=== PATIENT | male | born 1930 | race Caucasian/White ===

== ENCOUNTER 2017-05-29 10:57 | Inpatient (IN) | payer MEDICARE, BC ==
[2017-05-29] MEDS ORDERED: Ibuprofen 200 MG Tab PO PRN (14:57)
[2017-05-29] MEDS ORDERED: Docusate Sodium 100 MG Cap PO PRN (15:03)
[2017-05-29] MEDS ORDERED: Betamethasone Dipropionate/Clotrimazole 0.05-1% Crm 15 GM Tube TOP PRN (15:03)
[2017-05-29] MEDS ORDERED: Nitroglycerin 0.4 MG Tab.SL SL PRN (15:03)
[2017-05-29] MEDS ORDERED: Non-Formulary Medication 1 Each (Hydrocodone/Acetaminophen [Hydrocodon-Acetaminophn 10-325 PO PRN (15:03)
[2017-05-29] MEDS ORDERED: ALPRAZolam 0.25 MG Tab PO PRN (15:03)
[2017-05-29] MEDS ORDERED: Famotidine 20 MG Tab PO PRN (15:03)
[2017-05-29 15:32] LABS: CHLORIDE,CL 101 mEq/L (98-106); SODIUM,NA 137 mEq/L (136-145)
[2017-05-29] MEDS: Pseudoephedrine 30 MG Tab PO PRN (17:41)
[2017-05-29] MEDS: Gabapentin 300 MG Cap PO SCH (19:47)
[2017-05-29] MEDS: Simvastatin 10 MG Tab PO SCH (19:47)
[2017-05-29] MEDS: Amitriptyline 10 MG Tab PO SCH (19:48)
[2017-05-29] MEDS: Tamsulosin 0.4 MG Cap.ER PO SCH (19:48)
[2017-05-29] MEDS: Latanoprost 0.005% Ophth Soln 2.5 ML Bottle EYELF SCH (19:48)
[2017-05-29] MEDS: Timolol Maleate 0.5% Ophth Soln 5 ML Bottle EYELF SCH (19:48)
[2017-05-29] MEDS: Metoprolol Tartrate 25 MG Tab PO SCH (19:48)
[2017-05-29] MEDS: Acetaminophen/HYDROcodone 325-5 MG Tab PO PRN (19:54)
[2017-05-30] MEDS: Enoxaparin 30 MG/0.3 ML Syringe SUBCUT SCH (08:22)
[2017-05-30] MEDS: Gabapentin 300 MG Cap PO SCH ×2 (08:23→20:41)
[2017-05-30] MEDS: Aspirin 81 MG Tab.EC PO SCH (08:23)
[2017-05-30] MEDS: Primidone 50 MG Tab PO SCH (08:24)
[2017-05-30] MEDS: Timolol Maleate 0.5% Ophth Soln 5 ML Bottle EYELF SCH ×2 (08:25→20:42)
[2017-05-30] MEDS: Metoprolol Tartrate 25 MG Tab PO SCH ×2 (08:52→20:40)
[2017-05-30] MEDS: Pantoprazole 40 MG Tab.CR PO SCH (08:53)
--- NOTE | 2017-05-30 09:24 | HP ---
HISTORY OF PRESENT ILLNESS: Denzel is 87-year-old male who is status post strangulated ventral incisional hernia repair. He had this done down in [facility] in [place]. He had presented prior to that to the emergency room and with vomiting and a lump to the left side, a CT scan did confirm strangulated hernia. He underwent this surgery at [facility] for exploratory laparotomy with repair of strangulated ventral hernia and lysis of adhesions on 05/22. He has been doing quite well. He tolerated the procedure without any complications. He presents today for strengthening and conditioning. Denzel states that he is feeling quite well; however, he does feel weak. He states he has been trying to get up and be ambulatory with a walker; however, things are not progressing as fast as he would hope they would to be. He has does state that he would like to get home and get up at some point. He has not had any postop complications. States bowel movements have been okay. His diet has been advanced to a full diet presently. G-tube was pulled yesterday. He still continues to have a Drake catheter in place and wants me to recommend to discontinue it on Monday. PAST MEDICAL HISTORY: The patient would include history of hyperlipidemia, history of headaches, history of gastroesophageal reflux disease, degenerative joint disease, history of celiac artery aneurysm, coronary artery disease, arthritis, history of prostate cancer, history of inguinal hernia with repair, history of a transient ischemic attack, and history of shingles. PAST SURGICAL HISTORY: Includes inguinal hernia repair, cataract extraction, transperineal implant of radiation with use of ultrasound, carpal tunnel release, knee surgery x3 including two replacements, thoracic kyphosis surgery, epidural cervical steroid injection, tonsillectomy with adenoidectomy, cardiac catheterization showing three vessel CAD, inguinal hernia repair, and coronary artery bypass graft x3. SOCIAL HISTORY: The patient is and lives by himself. No tobacco use. No illicit drug use. Does socially drink one can of beer per week. FAMILY HISTORY: Significant for arthritis, heart attack, heart disease, and diabetes. ALLERGIES: INCLUDE CEPHALEXIN, ESCITALOPRAM, PROCAN SR, AND SULFA. CURRENT MEDICATIONS: Include Tylenol 650 mg p.o. q.4 hours p.r.n., Xanax 0.25 mg p.o. bedtime p.r.n., amitriptyline 20 mg p.o. at bedtime, aspirin 81 mg p.o. daily, Lotrisone topical b.i.d. p.r.n., Colace 100 mg p.o. daily p.r.n., Pepcid 20 mg p.o. daily p.r.n., gabapentin 600 mg p.o. b.i.d., [place] 5/325 one tab q.4 hours p.r.n., ibuprofen 400 mg p.o. q.6 hours p.r.n., metoprolol 12.5 mg p.o. b.i.d., nitroglycerin 0.4 mg sublingual q.5 minutes p.r.n., Lumigan ophthalmic solution one drop left eye bedtime, Protonix 40 mg p.o. daily, MiraLAX 17 g p.o. daily, primidone 25 mg p.o. daily, simvastatin 10 mg p.o. at bedtime, Flomax 0.4 mg p.o. bedtime, and timolol maleate left eye b.i.d. as scheduled. PHYSICAL EXAMINATION: VITAL SIGNS: Blood pressure 140/75 with a respiratory rate of 18, O2 is 96% on room air, and temp is 97.3 with a pulse of 65. GENERAL: Pleasant cooperative male. He is resting comfortably. Does not really appear to be in any acute distress, not acutely ill. HEENT: Grossly unremarkable. LUNGS: Clear to auscultation. I do not hear any adventitious sounds. RESPIRATIONS: Equal and nonlabored. CARDIAC: Regular rate and rhythm. No murmurs are noted. ABDOMEN: Soft. The left incision does appear to be healing well. He does have some mild ecchymosis present around it, however, I do not see any signs of wound dehiscence. I do not see any drainage presently. ABDOMEN: Soft. Bowel sounds are present and active. Again, no organomegaly. No guarding or rigidity is noted. EXTREMITIES: No pedal edema is noted. Pedal pulses are 1+ equal bilaterally. ASSESSMENT: STATUS POST STRANGULATED VENTRAL INCISIONAL HERNIA REPAIR. PLAN: Physical therapy was ordered. We will discontinue Drake catheter on Monday. We will continue Lovenox during this time. We will have him up as tolerated and with assistance. No lifting greater than 10 pounds for 6 weeks as well. I did verbalize that Dr. Sanders will follow him during his stay which he verbalized understanding. We will get Physical Therapy to work with him in the morning. YURIY Job #: /[id number]
[2017-05-30] MEDS: Mupirocin Oint 22 GM Tube TOP SCH ×2 (10:11→20:44)
[2017-05-30] MEDS: Polyethylene Glycol 3350 Powder 17 GM Packet PO PRN (10:16)
[2017-05-30] MEDS: Pseudoephedrine 30 MG Tab PO PRN (13:58)
[2017-05-30] MEDS: Amitriptyline 10 MG Tab PO SCH (20:40)
[2017-05-30] MEDS: Tamsulosin 0.4 MG Cap.ER PO SCH (20:41)
[2017-05-30] MEDS: Simvastatin 10 MG Tab PO SCH (20:41)
[2017-05-30] MEDS: Acetaminophen 325 MG Tab PO PRN (20:43)
[2017-05-30] MEDS: Latanoprost 0.005% Ophth Soln 2.5 ML Bottle EYELF SCH (20:44)
[2017-05-31] MEDS: Pantoprazole 40 MG Tab.CR PO SCH (07:09)
[2017-05-31] MEDS: Aspirin 81 MG Tab.EC PO SCH (08:18)
[2017-05-31] MEDS: Primidone 50 MG Tab PO SCH (08:18)
[2017-05-31] MEDS: Gabapentin 300 MG Cap PO SCH ×2 (08:19→20:04)
[2017-05-31] MEDS: Mupirocin Oint 22 GM Tube TOP SCH ×2 (09:06→20:05)
[2017-05-31] MEDS: Metoprolol Tartrate 25 MG Tab PO SCH ×2 (09:06→20:02)
[2017-05-31] MEDS: Timolol Maleate 0.5% Ophth Soln 5 ML Bottle EYELF SCH ×2 (09:10→20:04)
[2017-05-31] MEDS: Enoxaparin 30 MG/0.3 ML Syringe SUBCUT SCH (09:10)
[2017-05-31] MEDS: Acetaminophen/HYDROcodone 325-5 MG Tab PO PRN (10:07)
[2017-05-31] MEDS ORDERED: Acetaminophen/HYDROcodone 325-5 MG Tab PO PRN (10:13)
[2017-05-31] MEDS: Pseudoephedrine 30 MG Tab PO PRN (11:53)
[2017-05-31] MEDS: Levofloxacin 500 MG Tab PO SCH (17:31)
[2017-05-31] MEDS: Amitriptyline 10 MG Tab PO SCH (20:03)
[2017-05-31] MEDS: Tamsulosin 0.4 MG Cap.ER PO SCH (20:04)
[2017-05-31] MEDS: Simvastatin 10 MG Tab PO SCH (20:04)
[2017-05-31] MEDS: Latanoprost 0.005% Ophth Soln 2.5 ML Bottle EYELF SCH (20:11)
[2017-05-31] MEDS: Acetaminophen 325 MG Tab PO PRN (20:16)
[2017-06-01] MEDS: Pantoprazole 40 MG Tab.CR PO SCH (06:47)
[2017-06-01] MEDS: Enoxaparin 30 MG/0.3 ML Syringe SUBCUT SCH (08:03)
[2017-06-01] MEDS: Metoprolol Tartrate 25 MG Tab PO SCH ×2 (08:04→19:46)
[2017-06-01] MEDS: Gabapentin 300 MG Cap PO SCH ×2 (08:04→19:45)
[2017-06-01] MEDS: Polyethylene Glycol 3350 Powder 17 GM Packet PO PRN (08:05)
[2017-06-01] MEDS: Primidone 50 MG Tab PO SCH (08:06)
[2017-06-01] MEDS: Aspirin 81 MG Tab.EC PO SCH (08:07)
[2017-06-01] MEDS: Pseudoephedrine 30 MG Tab PO PRN (08:07)
[2017-06-01] MEDS: Mupirocin Oint 22 GM Tube TOP SCH ×2 (08:08→19:48)
[2017-06-01] MEDS: Timolol Maleate 0.5% Ophth Soln 5 ML Bottle EYELF SCH ×2 (08:08→19:48)
[2017-06-01] MEDS: Acetaminophen 325 MG Tab PO PRN ×2 (12:22→19:59)
[2017-06-01] MEDS: Levofloxacin 500 MG Tab PO SCH (17:21)
[2017-06-01] MEDS: Latanoprost 0.005% Ophth Soln 2.5 ML Bottle EYELF SCH (19:47)
[2017-06-01] MEDS: Amitriptyline 10 MG Tab PO SCH (19:47)
[2017-06-01] MEDS: Tamsulosin 0.4 MG Cap.ER PO SCH (19:47)
[2017-06-01] MEDS: Simvastatin 10 MG Tab PO SCH (19:47)
[2017-06-02] MEDS: Pantoprazole 40 MG Tab.CR PO SCH (06:31)
[2017-06-02] MEDS ORDERED: Magnesium Hydroxide 400 MG/5 ML Susp 30 ML Cup PO ONE (08:00)
[2017-06-02] MEDS: Primidone 50 MG Tab PO SCH (08:32)
[2017-06-02] MEDS: Enoxaparin 30 MG/0.3 ML Syringe SUBCUT SCH (08:32)
[2017-06-02] MEDS: Aspirin 81 MG Tab.EC PO SCH (08:32)
[2017-06-02] MEDS: Mupirocin Oint 22 GM Tube TOP SCH ×2 (08:33→19:43)
[2017-06-02] MEDS: Metoprolol Tartrate 25 MG Tab PO SCH ×2 (08:33→19:44)
[2017-06-02] MEDS: Gabapentin 300 MG Cap PO SCH ×2 (08:34→19:44)
[2017-06-02] MEDS: Timolol Maleate 0.5% Ophth Soln 5 ML Bottle EYELF SCH ×2 (08:34→19:49)
[2017-06-02] MEDS ORDERED: Bisacodyl 10 MG Supp RECTAL ONE (14:23)
[2017-06-02] MEDS: Levofloxacin 500 MG Tab PO SCH (17:22)
[2017-06-02] MEDS: Amitriptyline 10 MG Tab PO SCH (19:44)
[2017-06-02] MEDS: Simvastatin 10 MG Tab PO SCH (19:46)
[2017-06-02] MEDS: Tamsulosin 0.4 MG Cap.ER PO SCH (19:46)
[2017-06-02] MEDS: Acetaminophen 325 MG Tab PO PRN (19:46)
[2017-06-02] MEDS: Latanoprost 0.005% Ophth Soln 2.5 ML Bottle EYELF SCH (19:49)
[2017-06-03] MEDS: Pantoprazole 40 MG Tab.CR PO SCH (07:07)
[2017-06-03] MEDS: Mupirocin Oint 22 GM Tube TOP SCH (08:03)
[2017-06-03] MEDS: Primidone 50 MG Tab PO SCH (08:04)
[2017-06-03] MEDS: Metoprolol Tartrate 25 MG Tab PO SCH (08:04)
[2017-06-03] MEDS: Gabapentin 300 MG Cap PO SCH (08:04)
[2017-06-03] MEDS: Enoxaparin 30 MG/0.3 ML Syringe SUBCUT SCH (08:11)
[2017-06-03] MEDS: Aspirin 81 MG Tab.EC PO SCH (08:12)
[2017-06-03] MEDS: Timolol Maleate 0.5% Ophth Soln 5 ML Bottle EYELF SCH (08:13)
[2017-06-03 08:16] VITALS: BP 156/69
[2017-06-03] MEDS ORDERED: Magnesium Citrate Solution 296 ML Bottle PO ONE (09:00)
--- NOTE | 2017-06-03 14:14 | PCM.DCSUM1 ---
Discharge Summary - Hospital Course HPI Initial Comments: This patient is a swing patient that was admitted here for strengthening and rehab. Patient had undergone a hernia repair of the abdomen. The patient has been doing well here and has requested to go home today. The patient has family that is willing to take the patient home and help care for him. The patient reports his only complaint is mild constipation, which is chronic for him. He reports that typically he would take Magnesium Citrate and it would work. He has requested this today and would like to go home. The patient is alert and oriented. Stable. I will discharge him home. His wound on abdomen looks well and healing without any complications. - Discharge Data Discharge Date: 06/03/17 Discharge Disposition: Home, Self-Care 01 Condition: Good - Patient Summary/Data Consults: Consultations 05/29/17 14:57 PT Evaluation and Treatment [CONS] Routine - Patient Instructions Diet: Usual Diet as Tolerated Activity: As Tolerated, No Strenuous Activities Showering/Bathing: May Shower Wound/Incision Care: Keep Operative Site/Wound Site Clean and Dry Notify Provider of: Fever, Increased Pain, Swelling and Redness, Drainage, Nausea and/or Vomiting - Discharge Plan Home Medications: Home Meds ALPRAZolam [Alprazolam Odt] 0.25 mg PO BEDTIME PRN 12/17/13 [History] Amitriptyline [Elavil] 20 mg PO BEDTIME 12/17/13 [History] Aspirin [Halfprin] 81 mg PO DAILY 12/17/13 [History] Nitroglycerin [Nitrostat] 0.4 mg SL ASDIRECTED PRN 12/17/13 [History] Simvastatin [Zocor] 10 mg PO BEDTIME 12/17/13 [History] Timolol Maleate [Timoptic 0.5% Ophth Soln] 1 drop EYELF BID 12/17/13 [History] Bimatoprost [LUMIGAN 0.01% Ophth Soln] 1 drop EYELF BEDTIME 12/18/13 [History] Docusate Sodium 100 mg PO DAILY PRN 11/14/14 [History] Gabapentin [Neurontin] 600 mg PO BID 11/14/14 [History] Hydrocodone/Acetaminophen [Hydrocodon-Acetaminophen 5-325] 1 each PO Q4H PRN 07/21 [History] Multivitamin [Multi-Vitamin Daily] 1 tab PO DAILY 11/14/14 [History] Ranitidine [Zantac] 75 mg PO DAILY PRN 11/14/14 [History] Tamsulosin [Flomax] 0.4 mg PO BEDTIME 11/14/14 [History] Acetaminophen [Tylenol Extra Strength] 500 mg PO Q6H PRN 07/30/15 [History] Cholecalciferol (Vitamin D3) [Vitamin D3] 1,000 units PO DAILY 07/30/15 [History ] Pantoprazole [ProTONIX] 40 mg PO DAILY 09/20/16 [History] Betamethasone/Propylene Glyc [Betamethasone Dp Aug 0.05% Oin] 1 applic TOP DAILY PRN 05/22/17 [History] Clotrimazole/Betamethasone Dip [Lotrisone Cream] 1 applic TOP BID PRN 05/22/17 [ History] Primidone 25 mg PO DAILY 05/22/17 [History] Hydrocodone/Acetaminophen [Hydrocodon-Acetaminophn 10-325] 1 tab PO Q4H PRN [History] Metoprolol Tartrate [Lopressor] 12.5 mg PO BID 05/29/17 [History] - Discharge Summary/Plan Comment DC Time >30 min.: No Discharge Summary/Plan Comment: Followup with your primary care provider next week Return to the ER for worsening of condition or any emergent concerns - General Info Date of Service: 06/03/17 Functional Status: Reports: Pain Controlled - Review of Systems General: Reports: No Symptoms HEENT: Reports: No Symptoms Pulmonary: Reports: No Symptoms Cardiovascular: Reports: No Symptoms Gastrointestinal: Reports: Constipation (chronic). Denies: Abdominal Pain, Decreased Appetite, Diarrhea, Difficulty Swallowing, Nausea, Vomiting Genitourinary: Reports: No Symptoms Musculoskeletal: Reports: No Symptoms Skin: Reports: No Symptoms Neurological: Reports: No Symptoms Psychiatric: Reports: No Symptoms - Patient Data Vitals - Most Recent: Last Vital Signs Temp 96.1 F 06/03/17 08:00 Pulse 67 06/03/17 08:04 Resp 18 06/03/17 08:00 BP 156/69 H 06/03/17 08:04 Pulse Ox 98 06/03/17 08:00 Weight - Most Recent: 158 lb 6.4 oz CORNELIO Results - Last 24 hrs: Microbiology 05/31/17 17:21 Urine Culture - Final Urine, Voided Med Orders - Current: Current Medications Acetaminophen (Tylenol) 650 mg PO Q4H PRN PRN Reason: Pain (Mild 1-3)/fever Last Admin: 06/02/17 19:46 Dose: 650 mg Hydrocodone Bitart/Acetaminophen (Elton 325-5 Mg) 0.5 - 1 tab PO Q4H PRN PRN Reason: Pain Last Admin: 05/31/17 16:07 Dose: 0.5 tab Alprazolam (Xanax) 0.25 mg PO BEDTIME PRN PRN Reason: Anxiety Last Admin: 06/02/17 19:47 Dose: 0.25 mg Amitriptyline HCl (Elavil) 20 mg PO BEDTIME [facility] Last Admin: 06/02/17 19:44 Dose: 20 mg Aspirin (Halfprin) 81 mg PO DAILY [facility] Last Admin: 06/03/17 08:12 Dose: 81 mg Betamethasone/Clotrimazole (Lotrisone) 0 gm TOP BID PRN PRN Reason: skin irritation Docusate Sodium (Colace) 100 mg PO DAILY PRN PRN Reason: Constipation Last Admin: 06/01/17 08:06 Dose: 100 mg Enoxaparin Sodium (Lovenox) 30 mg SUBCUT Q24H [facility] Last Admin: 06/03/17 08:11 Dose: 30 mg Famotidine (Pepcid) 20 mg PO DAILY PRN PRN Reason: Acid reflux Last Admin: 06/02/17 19:46 Dose: 20 mg Gabapentin (Neurontin) 600 mg PO BID [facility] Last Admin: 06/03/17 08:04 Dose: 600 mg Ibuprofen (Motrin) 400 mg PO Q6H PRN PRN Reason: Pain (mild 1-3) Latanoprost (Xalatan 0.005% Ophth Soln) 0 ml EYELF BEDTIME [facility] Last Admin: 06/02/17 19:49 Dose: 1 drop Levofloxacin (Levaquin) 500 mg PO Q24H [facility] Last Admin: 06/02/17 17:22 Dose: 500 mg Metoprolol Tartrate (Lopressor) 12.5 mg PO BID [facility] Last Admin: 06/03/17 08:04 Dose: 12.5 mg Mupirocin (Bactroban Oint) 0 gm TOP BID [facility] Last Admin: 06/03/17 08:03 Dose: 1 applic Nitroglycerin (Nitrostat) 0.4 mg SL Q5M PRN PRN Reason: Chest Pain Pantoprazole Sodium (Protonix) 40 mg PO 0700 [facility] Last Admin: 06/03/17 07:07 Dose: 40 mg Polyethylene Glycol (Miralax) 17 gm PO DAILY PRN PRN Reason: Constipation Last Admin: 06/01/17 08:05 Dose: 17 gm Primidone (Mysoline) 25 mg PO DAILY [facility] Last Admin: 06/03/17 08:04 Dose: 25 mg Pseudoephedrine HCl (Sudogest) 30 mg PO Q8H PRN PRN Reason: secretions Last Admin: 06/01/17 08:07 Dose: 30 mg Simvastatin (Zocor) 10 mg PO BEDTIME [facility] Last Admin: 06/02/17 19:46 Dose: 10 mg Tamsulosin HCl (Flomax) 0.4 mg PO BEDTIME [facility] Last Admin: 06/02/17 19:46 Dose: 0.4 mg Timolol Maleate (Timoptic 0.5% Ophth Soln) 0 ml EYELF BID [facility] Last Admin: 06/03/17 08:13 Dose: 1 drop Discontinued Medications Hydrocodone Bitart/Acetaminophen (Elton 325-5 Mg) 1 tab PO Q4H PRN PRN Reason: Pain Last Admin: 05/31/17 10:07 Dose: 0.5 tab Bisacodyl (Dulcolax) 10 mg RECTAL ONETIME ONE Stop: 06/02/17 14:24 Last Admin: 06/02/17 15:35 Dose: 10 mg Magnesium Citrate (Citrate Of Magnesia) 75 ml PO ONETIME ONE Stop: 06/03/17 09:01 Last Admin: 06/03/17 09:23 Dose: 75 ml Magnesium Hydroxide (Milk Of Magnesia) 30 ml PO ONETIME ONE Stop: 06/02/17 08:01 Last Admin: 06/02/17 08:32 Dose: 30 ml - Exam General: Reports: Alert, Oriented, Cooperative, No Acute Distress Neck: Reports: Supple Lungs: Reports: Clear to Auscultation, Normal Respiratory Effort Cardiovascular: Reports: Regular Rate, Regular Rhythm, No Murmurs GI/Abdominal Exam: Normal Bowel Sounds, Soft, Non-Tender, No Organomegaly, No Distention, No Abnormal Bruit, No Mass, Pelvis Stable Back Exam: Reports: Normal Inspection, Full Range of Motion Extremities: Normal Inspection, Normal Range of Motion, Non-Tender, No Pedal Edema, Normal Capillary Refill Skin: Reports: Warm, Dry Wound/Incisions: Reports: Healing Well (abdomen. Steri Strips in place. ), Dressing Dry and Intact, No Drainage. Denies: Erythema Neurological: Reports: No New Focal Deficit Psy/Mental Status: Reports: Alert, Normal Affect, Normal Mood *Q Meaningful Use (DIS) - VTE *Q VTE Criteria *Q: - Stroke *Q Stroke Criteria *Q: - AMI *Q AMI Criteria *Q:
== END 2017-06-03 15:40 | disposition home or self-care (01) | DRG 950 ==
LOC: UNDOADMIN 13:20 → CC.MS 13:20
PROVIDERS: ADMIT General Practice; ATTEND General Practice
DX: Z48.815 Encounter for surgical aftercare following surgery on the digestive system (principal); R53.1 Weakness; Z98.890 Other specified postprocedural states; E78.5 Hyperlipidemia, unspecified; K21.9 Gastro-esophageal reflux disease without esophagitis; I25.10 Atherosclerotic heart disease of native coronary artery without angina pectoris; K59.09 Other constipation
CPT/HCPCS: 36415; 80053; 81001; 83735; 85025; 87086; 97110-GP; 97161-GP; A9270-GY; J1650

== ENCOUNTER 2017-06-25 03:55 | Emergency (ER) | payer MEDICARE, BC ==
[2017-06-25 04:08] VITALS: BP 118/72
[2017-06-25 04:51] LABS: CHLORIDE,CL 100 mEq/L (98-106); SODIUM,NA 136 mEq/L (136-145)
--- NOTE | 2017-06-25 05:16 | EDM.PDOC ---
ED HPI GENERAL MEDICAL PROBLEM - General Chief Complaint: General Stated Complaint: Weakness Time Seen by Provider: 06/25/17 04:24 Source of Information: Reports: Patient History Limitations: Reports: No Limitations - History of Present Illness INITIAL COMMENTS - FREE TEXT/NARRATIVE: This patient is a pleasant 87 year old male that presents to the ER. Patient reports that at 2030 last night he developed burning chest pain. He reports it was mild in nature. He reports he took maalox and then nitro at 0130 this morning and it completely resolved. Patient reports he is now pain free. Patient denies sánchez, dizziness, n, v, d, f, cp now, shortness of breath, abd pain. Patient is fully alert and oriented. Stable. Onset Date: 06/24/17 Onset Time: 20:30 Duration: Hour(s): (5) Quality: Reports: Burning Severity: Mild Improves with: Reports: Medication (Nitro at 0130.) Worsens with: Reports: None - Related Data Allergies Allergy/AdvReac Type Severity Reaction Status Date / Time cephalexin Allergy Cannot Verified 06/25/17 04:08 Remember escitalopram Allergy Rash Verified 06/25/17 04:08 procainamide HCl Allergy Cannot Verified 06/25/17 04:08 [From Procan SR] Remember Sulfa (Sulfonamide Allergy Nausea and Verified 06/25/17 04:08 Antibiotics) Vomiting Home Meds: Home Meds ALPRAZolam [Alprazolam Odt] 0.25 mg PO BEDTIME PRN 12/17/13 [History] Amitriptyline [Elavil] 20 mg PO BEDTIME 12/17/13 [History] Aspirin [Halfprin] 81 mg PO DAILY 12/17/13 [History] Nitroglycerin [Nitrostat] 0.4 mg SL ASDIRECTED PRN 12/17/13 [History] Simvastatin [Zocor] 10 mg PO BEDTIME 12/17/13 [History] Timolol Maleate [Timoptic 0.5% Ophth Soln] 1 drop EYELF BID 12/17/13 [History] Bimatoprost [LUMIGAN 0.01% Ophth Soln] 1 drop EYELF BEDTIME 12/18/13 [History] Docusate Sodium 100 mg PO DAILY PRN 11/14/14 [History] Gabapentin [Neurontin] 600 mg PO BID 11/14/14 [History] Hydrocodone/Acetaminophen [Hydrocodon-Acetaminophen 5-325] 1 each PO Q4H PRN 07/21 [History] Multivitamin [Multi-Vitamin Daily] 1 tab PO DAILY 11/14/14 [History] Ranitidine [Zantac] 75 mg PO DAILY PRN 11/14/14 [History] Tamsulosin [Flomax] 0.4 mg PO BEDTIME 11/14/14 [History] Acetaminophen [Tylenol Extra Strength] 500 mg PO Q6H PRN 07/30/15 [History] Cholecalciferol (Vitamin D3) [Vitamin D3] 1,000 units PO DAILY 07/30/15 [History ] Pantoprazole [ProTONIX] 40 mg PO DAILY 09/20/16 [History] Betamethasone/Propylene Glyc [Betamethasone Dp Aug 0.05% Oin] 1 applic TOP DAILY PRN 05/22/17 [History] Clotrimazole/Betamethasone Dip [Lotrisone Cream] 1 applic TOP BID PRN 05/22/17 [ History] Primidone 25 mg PO DAILY 05/22/17 [History] Hydrocodone/Acetaminophen [Hydrocodon-Acetaminophn 10-325] 1 tab PO Q4H PRN [History] Metoprolol Tartrate [Lopressor] 12.5 mg PO BID 05/29/17 [History] Past Medical History HEENT History: Reports: Cataract, Glaucoma Cardiovascular History: Reports: Bypass, CAD, High Cholesterol, Hypertension Gastrointestinal History: Reports: Chronic Constipation, Diverticulosis, GERD, Inflammatory Bowel Disease, Other (See Below) Other Gastrointestinal History: Strangulated hernia Musculoskeletal History: Reports: Arthritis, Back Pain, Chronic, Neck Pain, Chronic, Osteoarthritis Neurological History: Reports: TIA Psychiatric History: Reports: Anxiety Endocrine/Metabolic History: Reports: Vitamin D Deficiency Oncologic (Cancer) History: Reports: Prostate - Past Surgical History Cardiovascular Surgical History: Reports: Coronary Artery Bypass GI Surgical History: Reports: Hernia, Abdominal Musculoskeletal Surgical History: Reports: Knee Replacement Social & Family History - Family History Family Medical History: Noncontributory HEENT: Reports: None Cardiac: Reports: None Respiratory: Reports: None GI: Reports: GERD Musculoskeletal: Reports: Arthritis - Tobacco Use Smoking Status *Q: Never Smoker Years of Tobacco use: 5 Second Hand Smoke Exposure: No - Caffeine Use Caffeine Use: Reports: Coffee, Tea - Alcohol Use Days Per Week of Alcohol Use: 1 Number of Drinks Per Day: 1 Total Drinks Per Week: 1 - Recreational Drug Use Recreational Drug Use: No - Living Situation & Occupation Living situation: Reports: , with Spouse Occupation: Retired ED ROS GENERAL - Review of Systems Review Of Systems: See Below Constitutional: Reports: No Symptoms HEENT: Reports: No Symptoms Respiratory: Reports: No Symptoms Cardiovascular: Reports: Chest Pain. Denies: Dyspnea on Exertion, Edema, Lightheadedness, Palpitations, Syncope Endocrine: Reports: No Symptoms GI/Abdominal: Reports: Flatus. Denies: Abdominal Pain, Bloody Stool, Constipation, Diarrhea, Nausea, Vomiting : Reports: No Symptoms Musculoskeletal: Reports: No Symptoms Skin: Reports: No Symptoms Neurological: Reports: No Symptoms Psychiatric: Reports: No Symptoms Hematologic/Lymphatic: Reports: No Symptoms Immunologic: Reports: No Symptoms ED EXAM, GENERAL - Physical Exam Exam: See Below Exam Limited By: No Limitations General Appearance: Alert, WD/WN, No Apparent Distress Eye Exam: Bilateral Eye: Normal Inspection, PERRL Ears: Normal External Exam, Normal Canal, Hearing Grossly Normal, Normal TMs Ear Exam: Bilateral Ear: Auricle Normal, Canal Normal, TM normal Nose: Normal Inspection, Normal Mucosa, No Blood Throat/Mouth: Normal Inspection, Normal Lips, Normal Gums, Normal Oropharynx, Normal Voice, No Airway Compromise Head: Atraumatic, Normocephalic Neck: Normal Inspection, Supple, Non-Tender, Full Range of Motion Respiratory/Chest: No Respiratory Distress, Lungs Clear, Normal Breath Sounds, No Accessory Muscle Use, Chest Non-Tender Cardiovascular: Normal Peripheral Pulses, Regular Rate, Rhythm, No Edema, No Gallop, No JVD, No Murmur, No Rub Peripheral Pulses: 2+: Radial (L), Radial (R), Posterior Tibial (L), Posterior Tibial (R) GI/Abdominal: Normal Bowel Sounds, Soft, Non-Tender Extremities: Normal Inspection, Normal Range of Motion, Non-Tender, No Pedal Edema, Normal Capillary Refill Neurological: Alert, Oriented, Normal Cognition, No Motor/Sensory Deficits Psychiatric: Normal Affect, Normal Mood Skin Exam: Warm, Dry, Intact, Normal Color, No Rash Lymphatic: No Adenopathy Course - Vital Signs Last Recorded V/S: Last Vital Signs Temp 97.2 F 06/25/17 03:59 Pulse 64 06/25/17 03:59 Resp 18 06/25/17 03:59 BP 118/72 06/25/17 03:59 Pulse Ox 98 06/25/17 03:59 - Orders/Labs/Meds Orders: Active Orders 24 hr Category Date Time Status EKG Documentation Completion [RC] STAT Care 06/25/17 04:30 Active Labs: Laboratory Tests 06/25/17 06/25/17 Range/Units 04:25 04:25 WBC 4.5 L (5.0-10.0) 10^3/uL RBC 3.90 L (4.50-6.00) 10^6/uL Hgb 14.6 (14.0-18.0) g/dL Hct 35.3 L (40.0-54.0) % MCV 90.5 (82.0-94.0) fL MCH 37.4 H (27.0-32.0) pg MCHC 41.4 H (33.0-38.0) g/dL RDW Coeff of Jaya 14.8 (11.0-15.0) % Plt Count 175 (150-400) 10^3/uL Neut % (Auto) 58.7 (35-85) % Lymph % (Auto) 24.6 (10-55) % Mcculloch % (Auto) 10.8 (0-16) % Eos % (Auto) 5.5 H (0-5) % Baso % (Auto) 0.4 (0-3) % Neut # (Auto) 2.65 (1.80-7.00) 10^3/uL Lymph # (Auto) 1.11 (1.00-4.80) 10^3/uL Mcculloch # (Auto) 0.49 (0.00-0.80) 10^3/uL Eos # (Auto) 0.25 (0.00-0.45) 10^3/uL Baso # (Auto) 0.02 10^3/uL Sodium 136 (136-145) mEq/L Potassium 5.4 H D (3.5-5.0) mEq/L Chloride 100 (98-106) mEq/L Carbon Dioxide 29 (21-32) mmol/L BUN 13 (7-18) mg/dL Creatinine 1.1 (0.7-1.3) mg/dL Est Cr Clr Drug Dosing 44.05 mL/min Estimated GFR (MDRD) > 60 (>=60) mL/min Glucose 114 H (75-99) mg/dL Calcium 8.7 (8.4-10.1) mg/dL Total Bilirubin 0.4 (0.0-1.0) mg/dL AST 17 (15-37) U/L ALT 20 (12-78) U/L Alkaline Phosphatase 88 (46-116) U/L Troponin I < 0.017 (0.00-0.06) ng/mL Total Protein 6.7 (6.4-8.2) g/dL Albumin 3.8 (3.4-5.0) g/dL - Re-Assessments/Exams Free Text/Narrative Re-Assessment/Exam: 06/25/17 05:15 Patient potassium is 5.4. Will have patient see PCP this week for recheck of patient and possible lab. Patient is currently chest pain free and has no complaints. Departure - Departure Time of Disposition: 05:12 Disposition: Home, Self-Care 01 Condition: Good Clinical Impression: Chest pain Qualifiers: Chest pain type: unspecified Qualified Code(s): R07.9 - Chest pain, unspecified - Discharge Information Instructions: Nonspecific Chest Pain, [id number] Referrals: Bk Sanders MD [Primary Care Provider] - Forms: ED Department Discharge Additional Instructions: Followup with your primary care provider this week Return to the ER for worsening of condition or any emergent concerns - My Orders Last 24 Hours: My Active Orders 06/25/17 04:30 EKG Documentation Completion [RC] STAT - Assessment/Plan Last 24 Hours: My Active Orders 06/25/17 04:30 EKG Documentation Completion [RC] STAT Plan: PLEASE SEE RN NOTE FOR PFSH.
== END 2017-06-25 05:35 | disposition home or self-care (01) ==
LOC: CC.ED 03:55
DX: R07.9 Chest pain, unspecified (principal); I25.10 Atherosclerotic heart disease of native coronary artery without angina pectoris; E78.00 Pure hypercholesterolemia, unspecified; I10 Essential (primary) hypertension; F41.9 Anxiety disorder, unspecified; K21.9 Gastro-esophageal reflux disease without esophagitis; M19.90 Unspecified osteoarthritis, unspecified site; Z88.1 Allergy status to other antibiotic agents; Z88.2 Allergy status to sulfonamides; Z79.82 Long term (current) use of aspirin; Z79.899 Other long term (current) drug therapy; Z86.73 Personal history of transient ischemic attack (TIA), and cerebral infarction without residual deficits; Z95.1 Presence of aortocoronary bypass graft; Z96.659 Presence of unspecified artificial knee joint
CPT/HCPCS: 36415; 80053; 84484; 85025; 93005; 93010; 99285

== ENCOUNTER 2018-03-14 15:32 | Inpatient (IN) | payer MEDICARE, BC ==
[2018-03-14 16:02] LABS: CHLORIDE,CL 97 mEq/L (98-106); SODIUM,NA 132 mEq/L (136-145)
[2018-03-14] MEDS ORDERED: ALPRAZolam 0.25 MG Tab PO PRN (17:15)
[2018-03-14] MEDS ORDERED: Nitroglycerin 0.4 MG Tab.SL SL PRN (17:15)
[2018-03-14] MEDS ORDERED: Acetaminophen/HYDROcodone 325-5 MG Tab PO PRN (17:42)
[2018-03-14] MEDS: Azithromycin 500 MG in Sodium Chloride 0.9% 250 ML IV SCH (18:05)
[2018-03-14] MEDS: methylPREDNISolone Sodium Succinate 125 MG/2 ML SDV IVPUSH SCH (18:06)
[2018-03-14] MEDS: Lactated Ringers 1,000 ML IV SCH (18:11)
[2018-03-14] MEDS ORDERED: Amitriptyline 10 MG Tab PO SCH (20:00)
[2018-03-14] MEDS ORDERED: Timolol Maleate 0.5% Ophth Soln 5 ML Bottle EYEBOTH SCH (20:00)
[2018-03-14] MEDS ORDERED: Tamsulosin 0.4 MG Cap.ER PO SCH (20:00)
[2018-03-14] MEDS ORDERED: Metoprolol Tartrate 25 MG Tab PO SCH (20:00)
[2018-03-14] MEDS ORDERED: Latanoprost 0.005% Ophth Soln 2.5 ML Bottle EYELF SCH (20:00)
[2018-03-14] MEDS: Enoxaparin 40 MG/0.4 ML Syringe SUBCUT SCH (20:28)
[2018-03-14] MEDS: METOPROLOL 25 MG PO SCH (20:32)
[2018-03-14] MEDS: TAMSULOSIN 0.4 MG PO SCH (20:33)
[2018-03-14] MEDS: AMITRIPTYLINE 10 MG PO SCH (20:34)
[2018-03-14] MEDS: TIMOLOL 0.5% EYEBOTH SCH (20:35)
[2018-03-14] MEDS: EYE EYEBOTH SCH (20:35)
[2018-03-14] MEDS: LUMIGAN EYELF SCH (20:36)
[2018-03-14] MEDS: EYE EYELF SCH (20:36)
[2018-03-14] MEDS: Albuterol/Ipratropium 3.0-0.5 MG/3 ML Neb Soln NEB SCH (20:38)
[2018-03-15] MEDS: Acetaminophen 325 MG Tab PO PRN ×2 (00:09→22:07)
[2018-03-15] MEDS: PANTOPRAZOLE 40 MG PO SCH (07:04)
[2018-03-15 07:25] LABS: CHLORIDE,CL 100 mEq/L (98-106); SODIUM,NA 134 mEq/L (136-145)
[2018-03-15] MEDS: Aspirin 81 MG Tab.EC PO SCH (08:16)
[2018-03-15] MEDS: METOPROLOL 25 MG PO SCH ×2 (08:16→19:40)
[2018-03-15] MEDS: Albuterol/Ipratropium 3.0-0.5 MG/3 ML Neb Soln NEB SCH ×4 (08:16→19:40)
[2018-03-15] MEDS: NIFEDIPINE 10 MG PO SCH (08:17)
[2018-03-15] MEDS: Doxazosin 2 MG Tab PO SCH (08:18)
[2018-03-15] MEDS: TIMOLOL 0.5% EYEBOTH SCH ×2 (08:18→19:41)
[2018-03-15] MEDS: EYE EYEBOTH SCH ×2 (08:18→19:41)
--- NOTE | 2018-03-15 08:53 | PCM.PN ---
- General Info Date of Service: 03/15/18 Admission Dx/Problem (Free Text): Bronchiolitis Subjective Update: Denzel reports he is feeling better today. Reports his cough is loosening up. He reports he does continue to have some wheezes. Also has an occasional productive cough. He otherwise feels well and has no complaints. Functional Status: Reports: Pain Controlled, Tolerating Diet, Ambulating, Urinating. Denies: New Symptoms - Review of Systems General: Reports: Fatigue. Denies: Fever, Weakness, Chills HEENT: Reports: Post Nasal Drip. Denies: Headaches, Sinus Congestion, Rhinitis , Visual Changes Pulmonary: Reports: Cough, Sputum, Wheezing. Denies: Shortness of Breath Cardiovascular: Reports: Dyspnea on Exertion. Denies: Chest Pain, Edema, Lightheadedness Gastrointestinal: Reports: Other ("food gets stuck in throat sometimes"). Denies: Abdominal Pain, Constipation, Decreased Appetite, Diarrhea, Nausea, Vomiting Musculoskeletal: Reports: No Symptoms Skin: Reports: No Symptoms Neurological: Reports: No Symptoms. Denies: Confusion, Dizziness, Headache, Numbness, Syncope, Tingling Psychiatric: Reports: No Symptoms - Patient Data Vitals - Most Recent: Last Vital Signs Temp 97.1 F 03/15/18 08:00 Pulse 50 L 03/15/18 08:00 Resp 16 03/15/18 08:00 BP 169/77 H 03/15/18 08:00 Pulse Ox 99 03/15/18 08:00 Weight - Most Recent: 144 lb 9.972 oz Lab Results Last 24 Hours: Laboratory Results - last 24 hr 03/14/18 03/14/18 03/15/18 Range/Units 15:42 15:42 07:00 WBC 7.2 6.4 (5.0-10.0) 10^3/uL RBC 4.59 4.20 L (4.50-6.00) 10^6/uL Hgb 14.0 12.6 L (14.0-18.0) g/dL Hct 41.5 37.7 L (40.0-54.0) % MCV 90.4 89.8 (82.0-94.0) fL MCH 30.5 30.0 (27.0-32.0) pg MCHC 33.7 33.4 (33.0-38.0) g/dL RDW Coeff of Jaya 15.2 H 14.9 (11.0-15.0) % Plt Count 211 184 (150-400) 10^3/uL Neut % (Auto) 83.6 81.8 (35-85) % Lymph % (Auto) 12.2 14.3 (10-55) % [place] % (Auto) 4.0 3.9 (0-16) % Eos % (Auto) 0.1 0 (0-5) % Baso % (Auto) 0.1 0 (0-3) % Neut # (Auto) 6.03 5.21 (1.80-7.00) 10^3/uL Lymph # (Auto) 0.88 L 0.91 L (1.00-4.80) 10^3/uL [place] # (Auto) 0.29 0.25 (0.00-0.80) 10^3/uL Eos # (Auto) 0.01 0.00 (0.00-0.45) 10^3/uL Baso # (Auto) 0.01 0.00 10^3/uL Sodium 132 L (136-145) mEq/L Potassium 4.7 (3.5-5.0) mEq/L Chloride 97 L (98-106) mEq/L Carbon Dioxide 29 (21-32) mmol/L BUN 22 H (7-18) mg/dL Creatinine 1.2 (0.7-1.3) mg/dL Est Cr Clr Drug Dosing TNP Estimated GFR (MDRD) 57 L (>=60) mL/min Glucose 114 H (75-99) mg/dL Calcium 8.7 (8.4-10.1) mg/dL Total Bilirubin 0.4 (0.0-1.0) mg/dL AST 24 (15-37) U/L ALT 39 (12-78) U/L Alkaline Phosphatase 103 (46-116) U/L C-Reactive Protein < 0.2 L (0.2-0.8) mg/dL Total Protein 7.5 (6.4-8.2) g/dL Albumin 3.8 (3.4-5.0) g/dL 03/15/18 Range/Units 07:00 WBC (5.0-10.0) 10^3/uL RBC (4.50-6.00) 10^6/uL Hgb (14.0-18.0) g/dL Hct (40.0-54.0) % MCV (82.0-94.0) fL MCH (27.0-32.0) pg MCHC (33.0-38.0) g/dL RDW Coeff of Jaya (11.0-15.0) % Plt Count (150-400) 10^3/uL Neut % (Auto) (35-85) % Lymph % (Auto) (10-55) % [place] % (Auto) (0-16) % Eos % (Auto) (0-5) % Baso % (Auto) (0-3) % Neut # (Auto) (1.80-7.00) 10^3/uL Lymph # (Auto) (1.00-4.80) 10^3/uL [place] # (Auto) (0.00-0.80) 10^3/uL Eos # (Auto) (0.00-0.45) 10^3/uL Baso # (Auto) 10^3/uL Sodium 134 L (136-145) mEq/L Potassium 4.4 (3.5-5.0) mEq/L Chloride 100 (98-106) mEq/L Carbon Dioxide 27 (21-32) mmol/L BUN 22 H (7-18) mg/dL Creatinine 1.1 (0.7-1.3) mg/dL Est Cr Clr Drug Dosing 42.24 Estimated GFR (MDRD) > 60 (>=60) mL/min Glucose 179 H D (75-99) mg/dL Calcium 8.4 (8.4-10.1) mg/dL Total Bilirubin (0.0-1.0) mg/dL AST (15-37) U/L ALT (12-78) U/L Alkaline Phosphatase (46-116) U/L C-Reactive Protein < 0.2 L (0.2-0.8) mg/dL Total Protein (6.4-8.2) g/dL Albumin (3.4-5.0) g/dL Ander Results Last 24 Hours: Microbiology 03/14/18 15:42 Influenza Type A Antigen Screen - Final Nasopharyngeal Swab NEGATIVE INFLUENZA A VIRUS AG Influenza Type B Antigen Screen - Final NEGATIVE INFLUENZA B VIRUS AG Med Orders - Current: Current Medications Acetaminophen (Tylenol) 650 mg PO Q4H PRN PRN Reason: Pain (Mild 1-3)/fever Last Admin: 03/15/18 00:09 Dose: 650 mg Hydrocodone Bitart/Acetaminophen ([place] 325-5 Mg) 2 tab PO Q4H PRN PRN Reason: PAIN Albuterol/Ipratropium (Duoneb 3.0-0.5 Mg/3 Ml) 3 ml NEB QIDRT [facility] Last Admin: 03/15/18 08:16 Dose: 3 ml Alprazolam (Xanax) 0.25 mg PO BEDTIME PRN PRN Reason: Anxiety Aspirin (Halfprin) 81 mg PO DAILY [facility] Last Admin: 03/15/18 08:16 Dose: 81 mg Doxazosin Mesylate (Cardura) 2 mg PO DAILY [facility] Last Admin: 03/15/18 08:18 Dose: 2 mg Enoxaparin Sodium (Lovenox) 40 mg SUBCUT Q24H [facility] Last Admin: 03/14/18 20:28 Dose: 40 mg Azithromycin 500 mg/ Sodium (Chloride) 250 mls @ 250 mls/hr IV Q24H [facility] Last Admin: 03/14/18 18:05 Dose: 250 mls/hr Lactated Ringer's (Ringers, Lactated) 1,000 mls @ 50 mls/hr IV ASDIRECTED [facility] Last Admin: 03/14/18 18:11 Dose: 50 mls/hr Methylprednisolone Sodium Succinate (Solu-Medrol) 62.5 mg IVPUSH Q24H [facility] Last Admin: 03/14/18 18:06 Dose: 62.5 mg Nitroglycerin (Nitrostat) 0.4 mg SL ASDIRECTED PRN PRN Reason: Chest Pain PtomNifedipine (10 Mg Cap) 0 each PO DAILY [facility] Last Admin: 03/15/18 08:17 Dose: 1 each PtomPantoprazole (40 Mg Tab) 0 each PO DAILY [facility] Last Admin: 03/15/18 07:04 Dose: 1 each PtomMetoprolol (25 Mg Tab) 0 each PO BID [facility] Last Admin: 03/15/18 08:16 Dose: 1 each PtomTamsulosin 0 (.4 Mg Cap) 0 each PO BEDTIME [facility] Last Admin: 03/14/18 20:33 Dose: 1 each Ptom Amitriptyline 10 Mg Tab 0 each PO BEDTIME [facility] Last Admin: 03/14/18 20:34 Dose: 1 each PtomTimolol 0.5% (Eye Drops) 0 each EYEBOTH BID [facility] Last Admin: 03/15/18 08:18 Dose: 1 each PtomLumigan 0.5% (Eye Drops) 0 each EYELF BEDTIME [facility] Last Admin: 03/14/18 20:36 Dose: 1 each Discontinued Medications Amitriptyline HCl (Elavil) 20 mg PO BEDTIME [facility] Last Admin: 03/14/18 21:23 Dose: Not Given Latanoprost (Xalatan 0.005% Oph Soln) 0 ml EYELF BEDTIME [facility] Last Admin: 03/14/18 21:24 Dose: Not Given Metoprolol Tartrate (Lopressor) 12.5 mg PO BID [facility] Last Admin: 03/14/18 21:24 Dose: Not Given Tamsulosin HCl (Flomax) 0.4 mg PO BEDTIME [facility] Last Admin: 03/14/18 21:23 Dose: Not Given Timolol Maleate (Timoptic 0.5% Oph Soln) 0 ml EYEBOTH BID [facility] Last Admin: 03/14/18 21:24 Dose: Not Given - Exam Quality Assessment: DVT Prophylaxis. No: Supplemental Oxygen General: Alert, Oriented, No Acute Distress Neck: Supple Lungs: Normal Respiratory Effort, Wheezing (occasional expiratory wheeze). No: Decreased Breath Sounds, Crackles, Rales, Rhonchi Cardiovascular: Regular Rate, Regular Rhythm GI/Abdominal Exam: Normal Bowel Sounds, Soft, Non-Tender, No Organomegaly, No Distention, No Abnormal Bruit, No Mass, Pelvis Stable Extremities: Normal Inspection, Normal Range of Motion, Non-Tender, No Pedal Edema, Normal Capillary Refill Skin: Warm, Dry Neurological: No New Focal Deficit Psy/Mental Status: Alert, Normal Affect, Normal Mood - Problem List & Annotations (1) Bronchiolitis SNOMED Code(s): 8577538 Code(s): J21.9 - ACUTE BRONCHIOLITIS, UNSPECIFIED Status: Acute Current Visit: Yes - Problem List Review Problem List Initiated/Reviewed/Updated: Yes - Assessment Assessment:: Bronchiolitis - Plan Plan:: Continue IV steroids, antibiotics, and Duonebs. Patient is scheduled to have EGD tomorrow. Discussed with Dr. Arnold. Will plan to proceed with EGD as scheduled pending [employer] assessment and authorization. Clear liquid diet for supper. NPO after midnight. Continue all other current cares.
[2018-03-15] MEDS: Lactated Ringers 1,000 ML IV SCH (16:01)
[2018-03-15] MEDS: methylPREDNISolone Sodium Succinate 125 MG/2 ML SDV IVPUSH SCH (17:42)
[2018-03-15] MEDS: Azithromycin 500 MG in Sodium Chloride 0.9% 250 ML IV SCH (17:42)
[2018-03-15] MEDS: TAMSULOSIN 0.4 MG PO SCH (19:40)
[2018-03-15] MEDS: AMITRIPTYLINE 10 MG PO SCH (19:40)
[2018-03-15] MEDS: LUMIGAN EYELF SCH (19:41)
[2018-03-15] MEDS: Enoxaparin 40 MG/0.4 ML Syringe SUBCUT SCH (19:41)
[2018-03-15] MEDS: EYE EYELF SCH (19:41)
[2018-03-15] MEDS: Temazepam 15 MG Cap PO PRN (20:39)
[2018-03-16] MEDS: Albuterol/Ipratropium 3.0-0.5 MG/3 ML Neb Soln NEB SCH ×4 (08:19→19:53)
[2018-03-16] MEDS: Doxazosin 2 MG Tab PO SCH (08:20)
[2018-03-16] MEDS: NIFEDIPINE 10 MG PO SCH (08:21)
[2018-03-16] MEDS: METOPROLOL 25 MG PO SCH (08:21)
[2018-03-16] MEDS: PANTOPRAZOLE 40 MG PO SCH (08:21)
[2018-03-16] MEDS: Aspirin 81 MG Tab.EC PO SCH (08:21)
[2018-03-16] MEDS: TIMOLOL 0.5% EYEBOTH SCH (08:22)
[2018-03-16] MEDS: EYE EYEBOTH SCH (08:22)
--- NOTE | 2018-03-16 11:10 | PN ---
DATE: 03/16/2018 S: Denzel Vernon is in with an acute bronchiolitis on examination. O: NECK: Supple. CHEST: Wheezing throughout. CARDIAC: Sounds are good. No edema. ASSESSMENT: ACUTE BRONCHIOLITIS. P: Continue present therapy, we will place him acute. CHANTAL/ORACIO /[id number]
[2018-03-16] MEDS: Lactated Ringers 1,000 ML IV SCH (12:03)
[2018-03-16] MEDS: methylPREDNISolone Sodium Succinate 125 MG/2 ML SDV IVPUSH SCH (17:58)
[2018-03-16] MEDS: Levofloxacin/Dextrose 5%-Water 500 MG in Premix Bag 1 BAG IV SCH (17:59)
[2018-03-16] MEDS: Tamsulosin 0.4 MG Cap.ER PO SCH (19:53)
[2018-03-16] MEDS: Enoxaparin 40 MG/0.4 ML Syringe SUBCUT SCH (19:53)
[2018-03-16] MEDS: Metoprolol Tartrate 25 MG Tab PO SCH (19:54)
[2018-03-16] MEDS: Amitriptyline 10 MG Tab PO SCH (19:54)
[2018-03-16] MEDS: Latanoprost 0.005% Ophth Soln 2.5 ML Bottle EYELF SCH (19:55)
[2018-03-16] MEDS: Timolol Maleate 0.5% Ophth Soln 5 ML Bottle EYEBOTH SCH (19:55)
[2018-03-16] MEDS: Acetaminophen 325 MG Tab PO PRN (23:44)
[2018-03-17 07:49] LABS: CHLORIDE,CL 100 mEq/L (98-106); SODIUM,NA 132 mEq/L (136-145)
[2018-03-17] MEDS: Doxazosin 2 MG Tab PO SCH (07:52)
[2018-03-17] MEDS: Albuterol/Ipratropium 3.0-0.5 MG/3 ML Neb Soln NEB SCH ×4 (07:52→19:52)
[2018-03-17] MEDS: Aspirin 81 MG Tab.EC PO SCH (07:52)
[2018-03-17] MEDS: NIFEdipine 10 MG Cap PO SCH (07:53)
[2018-03-17] MEDS: Pantoprazole 40 MG Tab.CR PO SCH (07:54)
[2018-03-17] MEDS: Timolol Maleate 0.5% Ophth Soln 5 ML Bottle EYEBOTH SCH ×2 (08:00→19:53)
[2018-03-17] MEDS: Metoprolol Tartrate 25 MG Tab PO SCH ×2 (08:00→19:53)
--- NOTE | 2018-03-17 09:06 | PCM.PN ---
- General Info Date of Service: 03/17/18 Functional Status: Reports: Pain Controlled, Tolerating Diet - Review of Systems General: Reports: No Symptoms HEENT: Reports: Post Nasal Drip, Sinus Congestion, Rhinitis Pulmonary: Reports: Shortness of Breath, Cough, Sputum Cardiovascular: Reports: No Symptoms Gastrointestinal: Reports: No Symptoms Genitourinary: Reports: No Symptoms Musculoskeletal: Reports: No Symptoms Skin: Reports: No Symptoms Neurological: Reports: No Symptoms Psychiatric: Reports: No Symptoms - Patient Data Vitals - Most Recent: Last Vital Signs Temp 97 F 03/17/18 08:00 Pulse 50 L 03/17/18 08:00 Resp 20 03/17/18 08:00 BP 164/79 H 03/17/18 08:00 Pulse Ox 97 03/17/18 08:00 Weight - Most Recent: 144 lb 9.972 oz Lab Results Last 24 Hours: Laboratory Results - last 24 hr 03/16/18 03/17/18 03/17/18 Range/Units 08:15 05:00 05:00 WBC 7.4 (5.0-10.0) 10^3/uL RBC 4.15 L (4.50-6.00) 10^6/uL Hgb 12.5 L (14.0-18.0) g/dL Hct 36.9 L (40.0-54.0) % MCV 88.9 (82.0-94.0) fL MCH 30.1 (27.0-32.0) pg MCHC 33.9 (33.0-38.0) g/dL RDW Coeff of Jaya 15.3 H (11.0-15.0) % Plt Count 193 (150-400) 10^3/uL Neut % (Auto) 88.7 H (35-85) % Lymph % (Auto) 8.5 L (10-55) % [place] % (Auto) 2.8 (0-16) % Eos % (Auto) 0 (0-5) % Baso % (Auto) 0 (0-3) % Neut # (Auto) 6.58 (1.80-7.00) 10^3/uL Lymph # (Auto) 0.63 L (1.00-4.80) 10^3/uL [place] # (Auto) 0.21 (0.00-0.80) 10^3/uL Eos # (Auto) 0.00 (0.00-0.45) 10^3/uL Baso # (Auto) 0.00 10^3/uL Sodium 132 L (136-145) mEq/L Potassium 4.6 (3.5-5.0) mEq/L Chloride 100 (98-106) mEq/L Carbon Dioxide 28 (21-32) mmol/L BUN 23 H (7-18) mg/dL Creatinine 1.1 (0.7-1.3) mg/dL Est Cr Clr Drug Dosing 42.24 mL/min Estimated GFR (MDRD) > 60 (>=60) mL/min Glucose 150 H (75-99) mg/dL Calcium 8.2 L (8.4-10.1) mg/dL Magnesium 2.0 (1.8-2.4) mg/dL C-Reactive Protein 0.5 (0.2-0.8) mg/dL NT-Pro-B Natriuret Pep 613 (0-1000) pg/mL Med Orders - Current: Current Medications Acetaminophen (Tylenol) 650 mg PO Q4H PRN PRN Reason: Pain (Mild 1-3)/fever Last Admin: 03/16/18 23:44 Dose: 650 mg Hydrocodone Bitart/Acetaminophen ([place] 325-5 Mg) 2 tab PO Q4H PRN PRN Reason: PAIN Albuterol/Ipratropium (Duoneb 3.0-0.5 Mg/3 Ml) 3 ml NEB QIDRT [facility] Last Admin: 03/17/18 07:52 Dose: 3 ml Alprazolam (Xanax) 0.25 mg PO BEDTIME PRN PRN Reason: Anxiety Amitriptyline HCl (Elavil) 10 mg PO BEDTIME [facility] Last Admin: 03/16/18 19:54 Dose: 10 mg Aspirin (Halfprin) 81 mg PO DAILY [facility] Last Admin: 03/17/18 07:52 Dose: 81 mg Doxazosin Mesylate (Cardura) 2 mg PO DAILY [facility] Last Admin: 03/17/18 07:52 Dose: 2 mg Enoxaparin Sodium (Lovenox) 40 mg SUBCUT Q24H [facility] Last Admin: 03/16/18 19:53 Dose: 40 mg Levofloxacin/Dextrose 500 mg/ (Premix) 100 mls @ 100 mls/hr IV Q24H [facility] Last Admin: 03/16/18 17:59 Dose: 100 mls/hr Latanoprost (Xalatan 0.005% Ophth Soln) 0 ml EYELF BEDTIME [facility] Last Admin: 03/16/18 19:55 Dose: 1 drop Methylprednisolone Sodium Succinate (Solu-Medrol) 62.5 mg IVPUSH Q24H [facility] Last Admin: 03/16/18 17:58 Dose: 62.5 mg Metoprolol Tartrate (Lopressor) 25 mg PO BID [facility] Last Admin: 03/17/18 08:00 Dose: Not Given Nifedipine (Procardia) 10 mg PO DAILY [facility] Last Admin: 03/17/18 07:53 Dose: 10 mg Nitroglycerin (Nitrostat) 0.4 mg SL ASDIRECTED PRN PRN Reason: Chest Pain Pantoprazole Sodium (Protonix) 40 mg PO DAILY [facility] Last Admin: 03/17/18 07:54 Dose: 40 mg Tamsulosin HCl (Flomax) 0.4 mg PO BEDTIME [facility] Last Admin: 03/16/18 19:53 Dose: 0.4 mg Temazepam (Restoril) 15 mg PO BEDTIME PRN PRN Reason: Insomnia Timolol Maleate (Timoptic 0.5% Ophth Soln) 0 ml EYEBOTH BID [facility] Last Admin: 03/17/18 08:00 Dose: 1 drop Discontinued Medications Amitriptyline HCl (Elavil) 20 mg PO BEDTIME [facility] Last Admin: 03/14/18 21:23 Dose: Not Given Azithromycin 500 mg/ Sodium (Chloride) 250 mls @ 250 mls/hr IV Q24H [facility] Last Admin: 03/15/18 17:42 Dose: 250 mls/hr Lactated Ringer's (Ringers, Lactated) 1,000 mls @ 50 mls/hr IV ASDIRECTED [facility] Last Admin: 03/16/18 12:03 Dose: 50 mls/hr Latanoprost (Xalatan 0.005% Ophth Soln) 0 ml EYELF BEDTIME [facility] Last Admin: 03/14/18 21:24 Dose: Not Given Metoprolol Tartrate (Lopressor) 12.5 mg PO BID [facility] Last Admin: 03/14/18 21:24 Dose: Not Given PtomNifedipine (10 Mg Cap) 0 each PO DAILY [facility] Last Admin: 03/16/18 08:21 Dose: 1 each PtomPantoprazole (40 Mg Tab) 0 each PO DAILY [facility] Last Admin: 03/16/18 08:21 Dose: 1 each PtomMetoprolol (25 Mg Tab) 0 each PO BID [facility] Last Admin: 03/16/18 08:21 Dose: 1 each PtomTamsulosin 0 (.4 Mg Cap) 0 each PO BEDTIME [facility] Last Admin: 03/15/18 19:40 Dose: 1 each Ptom Amitriptyline 10 Mg Tab 0 each PO BEDTIME [facility] Last Admin: 03/15/18 19:40 Dose: 1 each PtomTimolol 0.5% (Eye Drops) 0 each EYEBOTH BID [facility] Last Admin: 03/16/18 08:22 Dose: 1 each PtomLumigan 0.5% (Eye Drops) 0 each EYELF BEDTIME [facility] Last Admin: 03/15/18 19:41 Dose: 1 each Tamsulosin HCl (Flomax) 0.4 mg PO BEDTIME [facility] Last Admin: 03/14/18 21:23 Dose: Not Given Timolol Maleate (Timoptic 0.5% Ophth Soln) 0 ml EYEBOTH BID [facility] Last Admin: 03/14/18 21:24 Dose: Not Given - Exam General: Alert, Oriented, Cooperative, No Acute Distress Neck: Supple Lungs: Rhonchi (moderate throughout. ), Wheezing Cardiovascular: Regular Rate GI/Abdominal Exam: Normal Bowel Sounds, Soft, Non-Tender, No Organomegaly, No Distention Back Exam: Normal Inspection, Full Range of Motion Extremities: Normal Inspection, Normal Range of Motion, Non-Tender, No Pedal Edema, Normal Capillary Refill Peripheral Pulses: 2+: Radial (L), Radial (R), Posterior Tibial (L), Posterior Tibial (R) Skin: Warm, Dry, Intact Neurological: No New Focal Deficit Psy/Mental Status: Alert, Normal Affect, Normal Mood - Problem List Review Problem List Initiated/Reviewed/Updated: Yes - My Orders Last 24 Hours: My Active Orders 03/18/18 05:00 BASIC METABOLIC PANEL,BMP [CHEM] DAILY CBC WITH AUTO DIFF [HEME] DAILY CRP [C-REACTIVE PROTEIN] [CHEM] DAILY 03/19/18 05:00 BASIC METABOLIC PANEL,BMP [CHEM] DAILY CBC WITH AUTO DIFF [HEME] DAILY CRP [C-REACTIVE PROTEIN] [CHEM] DAILY - Assessment Assessment:: Bronchiolitis - Plan Plan:: Continue IV steroids, antibiotics, and Duonebs. Patient was admitted for bronchiolitis. The patient does have rhonchi on exam. Patient does not appear short of breath. Domenicaetn has been laying in bed and not getting up to ambulate per nursing staff. Staff encouraged to get him and ambulating. Patient encouraged to take a shower. The patient is alert and oriented. Conversing in full and complete sentences. WBC today is 7.4, NA 132, BUN 23, CRP 0.5. I will discontinue his fluids, he is drinking and eating without difficulty. Patient will continue medications and breathing treatments. Patient getting breathing treatment after my exam. Will continue admit.
[2018-03-17] MEDS: methylPREDNISolone Sodium Succinate 125 MG/2 ML SDV IVPUSH SCH (18:23)
[2018-03-17] MEDS: Levofloxacin/Dextrose 5%-Water 500 MG in Premix Bag 1 BAG IV SCH (18:26)
[2018-03-17] MEDS: Enoxaparin 40 MG/0.4 ML Syringe SUBCUT SCH (19:52)
[2018-03-17] MEDS: Amitriptyline 10 MG Tab PO SCH (19:53)
[2018-03-17] MEDS: Tamsulosin 0.4 MG Cap.ER PO SCH (19:53)
[2018-03-17] MEDS: Latanoprost 0.005% Ophth Soln 2.5 ML Bottle EYELF SCH (19:54)
[2018-03-17] MEDS: Temazepam 15 MG Cap PO PRN (23:33)
[2018-03-18] MEDS: Doxazosin 2 MG Tab PO SCH (07:30)
[2018-03-18] MEDS: Aspirin 81 MG Tab.EC PO SCH (07:31)
[2018-03-18] MEDS: Pantoprazole 40 MG Tab.CR PO SCH (07:31)
[2018-03-18] MEDS: Albuterol/Ipratropium 3.0-0.5 MG/3 ML Neb Soln NEB SCH ×4 (07:31→20:03)
[2018-03-18] MEDS: NIFEdipine 10 MG Cap PO SCH (07:31)
[2018-03-18] MEDS: Timolol Maleate 0.5% Ophth Soln 5 ML Bottle EYEBOTH SCH ×2 (07:33→20:04)
[2018-03-18] MEDS: Metoprolol Tartrate 25 MG Tab PO SCH ×2 (07:36→20:04)
[2018-03-18 08:20] LABS: CHLORIDE,CL 101 mEq/L (98-106); SODIUM,NA 135 mEq/L (136-145)
[2018-03-18] MEDS ORDERED: Sodium Chloride 0.9% 1,000 ML IV SCH (09:00)
[2018-03-18] MEDS ORDERED: Sodium Chloride 0.9% 500 ML IV ONE (09:45)
--- NOTE | 2018-03-18 09:58 | PCM.PN ---
- General Info Date of Service: 03/18/18 Functional Status: Reports: Pain Controlled, Tolerating Diet, Ambulating, Urinating - Review of Systems General: Reports: No Symptoms HEENT: Reports: Post Nasal Drip, Sinus Congestion, Rhinitis Pulmonary: Reports: Cough, Sputum, Wheezing Cardiovascular: Reports: No Symptoms Gastrointestinal: Reports: No Symptoms Genitourinary: Reports: No Symptoms Musculoskeletal: Reports: No Symptoms Skin: Reports: No Symptoms Neurological: Reports: No Symptoms Psychiatric: Reports: No Symptoms - Patient Data Vitals - Most Recent: Last Vital Signs Temp 96.4 F 03/18/18 07:36 Pulse 53 L 03/18/18 07:36 Resp 20 03/18/18 07:36 BP 159/74 H 03/18/18 07:36 Pulse Ox 98 03/18/18 07:36 Weight - Most Recent: 144 lb 9.972 oz Lab Results Last 24 Hours: Laboratory Results - last 24 hr 03/18/18 03/18/18 Range/Units 07:37 07:37 WBC 7.4 (5.0-10.0) 10^3/uL RBC 4.18 L (4.50-6.00) 10^6/uL Hgb 12.6 L (14.0-18.0) g/dL Hct 36.9 L (40.0-54.0) % MCV 88.3 (82.0-94.0) fL MCH 30.1 (27.0-32.0) pg MCHC 34.1 (33.0-38.0) g/dL RDW Coeff of Jaya 15.5 H (11.0-15.0) % Plt Count 203 (150-400) 10^3/uL Neut % (Auto) 86.2 H (35-85) % Lymph % (Auto) 9.1 L (10-55) % [place] % (Auto) 4.6 (0-16) % Eos % (Auto) 0.1 (0-5) % Baso % (Auto) 0 (0-3) % Neut # (Auto) 6.34 (1.80-7.00) 10^3/uL Lymph # (Auto) 0.67 L (1.00-4.80) 10^3/uL [place] # (Auto) 0.34 (0.00-0.80) 10^3/uL Eos # (Auto) 0.01 (0.00-0.45) 10^3/uL Baso # (Auto) 0.00 10^3/uL Sodium 135 L (136-145) mEq/L Potassium 4.3 (3.5-5.0) mEq/L Chloride 101 (98-106) mEq/L Carbon Dioxide 27 (21-32) mmol/L BUN 26 H (7-18) mg/dL Creatinine 1.1 (0.7-1.3) mg/dL Est Cr Clr Drug Dosing 42.24 mL/min Estimated GFR (MDRD) > 60 (>=60) mL/min Glucose 154 H (75-99) mg/dL Calcium 8.0 L (8.4-10.1) mg/dL C-Reactive Protein 0.3 (0.2-0.8) mg/dL Med Orders - Current: Current Medications Acetaminophen (Tylenol) 650 mg PO Q4H PRN PRN Reason: Pain (Mild 1-3)/fever Last Admin: 03/16/18 23:44 Dose: 650 mg Hydrocodone Bitart/Acetaminophen ([place] 325-5 Mg) 2 tab PO Q4H PRN PRN Reason: PAIN Albuterol/Ipratropium (Duoneb 3.0-0.5 Mg/3 Ml) 3 ml NEB QIDRT [facility] Last Admin: 03/18/18 07:31 Dose: 3 ml Alprazolam (Xanax) 0.25 mg PO BEDTIME PRN PRN Reason: Anxiety Amitriptyline HCl (Elavil) 10 mg PO BEDTIME [facility] Last Admin: 03/17/18 19:53 Dose: 10 mg Aspirin (Halfprin) 81 mg PO DAILY [facility] Last Admin: 03/18/18 07:31 Dose: 81 mg Doxazosin Mesylate (Cardura) 2 mg PO DAILY [facility] Last Admin: 03/18/18 07:30 Dose: 2 mg Enoxaparin Sodium (Lovenox) 40 mg SUBCUT Q24H [facility] Last Admin: 03/17/18 19:52 Dose: 40 mg Levofloxacin/Dextrose 500 mg/ (Premix) 100 mls @ 100 mls/hr IV Q24H [facility] Last Admin: 03/17/18 18:26 Dose: 100 mls/hr Sodium Chloride (Normal Saline) 500 mls @ 500 mls/hr IV ONETIME ONE Stop: 03/18/18 10:44 Latanoprost (Xalatan 0.005% Ophth Soln) 0 ml EYELF BEDTIME [facility] Last Admin: 03/17/18 19:54 Dose: 1 drop Methylprednisolone Sodium Succinate (Solu-Medrol) 62.5 mg IVPUSH Q24H [facility] Last Admin: 03/17/18 18:23 Dose: 62.5 mg Metoprolol Tartrate (Lopressor) 25 mg PO BID [facility] Last Admin: 03/18/18 07:36 Dose: Not Given Nifedipine (Procardia) 10 mg PO DAILY [facility] Last Admin: 03/18/18 07:31 Dose: 10 mg Nitroglycerin (Nitrostat) 0.4 mg SL ASDIRECTED PRN PRN Reason: Chest Pain Pantoprazole Sodium (Protonix) 40 mg PO DAILY [facility] Last Admin: 03/18/18 07:31 Dose: 40 mg Tamsulosin HCl (Flomax) 0.4 mg PO BEDTIME [facility] Last Admin: 03/17/18 19:53 Dose: 0.4 mg Temazepam (Restoril) 15 mg PO BEDTIME PRN PRN Reason: Insomnia Last Admin: 03/17/18 23:33 Dose: 15 mg Timolol Maleate (Timoptic 0.5% Ophth Soln) 0 ml EYEBOTH BID [facility] Last Admin: 03/18/18 07:33 Dose: 1 drop Discontinued Medications Amitriptyline HCl (Elavil) 20 mg PO BEDTIME [facility] Last Admin: 03/14/18 21:23 Dose: Not Given Azithromycin 500 mg/ Sodium (Chloride) 250 mls @ 250 mls/hr IV Q24H [facility] Last Admin: 03/15/18 17:42 Dose: 250 mls/hr Lactated Ringer's (Ringers, Lactated) 1,000 mls @ 50 mls/hr IV ASDIRECTED [facility] Last Admin: 03/16/18 12:03 Dose: 50 mls/hr Sodium Chloride (Normal Saline) 1,000 mls @ 75 mls/hr IV ASDIRECTED [facility] Latanoprost (Xalatan 0.005% Ophth Soln) 0 ml EYELF BEDTIME [facility] Last Admin: 03/14/18 21:24 Dose: Not Given Metoprolol Tartrate (Lopressor) 12.5 mg PO BID [facility] Last Admin: 03/14/18 21:24 Dose: Not Given PtomNifedipine (10 Mg Cap) 0 each PO DAILY [facility] Last Admin: 03/16/18 08:21 Dose: 1 each PtomPantoprazole (40 Mg Tab) 0 each PO DAILY [facility] Last Admin: 03/16/18 08:21 Dose: 1 each PtomMetoprolol (25 Mg Tab) 0 each PO BID [facility] Last Admin: 03/16/18 08:21 Dose: 1 each PtomTamsulosin 0 (.4 Mg Cap) 0 each PO BEDTIME [facility] Last Admin: 03/15/18 19:40 Dose: 1 each Ptom Amitriptyline 10 Mg Tab 0 each PO BEDTIME [facility] Last Admin: 03/15/18 19:40 Dose: 1 each PtomTimolol 0.5% (Eye Drops) 0 each EYEBOTH BID [facility] Last Admin: 03/16/18 08:22 Dose: 1 each PtomLumigan 0.5% (Eye Drops) 0 each EYELF BEDTIME [facility] Last Admin: 03/15/18 19:41 Dose: 1 each Tamsulosin HCl (Flomax) 0.4 mg PO BEDTIME [facility] Last Admin: 03/14/18 21:23 Dose: Not Given Timolol Maleate (Timoptic 0.5% Oph Soln) 0 ml EYEBOTH BID [facility] Last Admin: 03/14/18 21:24 Dose: Not Given - Exam General: Alert, Oriented, Cooperative, No Acute Distress Neck: Supple Lungs: Rhonchi (bilateral throughout), Wheezing (mild expiratory bilateral) Cardiovascular: Regular Rate, Regular Rhythm, No Murmurs GI/Abdominal Exam: Normal Bowel Sounds, Soft, Non-Tender, No Organomegaly, No Distention, No Abnormal Bruit, No Mass, Pelvis Stable (Male) Exam: Deferred Back Exam: Normal Inspection, Full Range of Motion Extremities: Normal Inspection, Normal Range of Motion, Non-Tender, No Pedal Edema, Normal Capillary Refill Peripheral Pulses: 2+: Radial (L), Radial (R), Posterior Tibial (L), Posterior Tibial (R) Skin: Warm, Dry, Intact Neurological: No New Focal Deficit Psy/Mental Status: Alert, Normal Affect, Normal Mood - Problem List Review Problem List Initiated/Reviewed/Updated: Yes - My Orders Last 24 Hours: My Active Orders 03/18/18 09:31 Chest 2V [CR] Stat CULTURE SPUTUM + SMEAR [RM] Stat 03/18/18 09:45 Sodium Chloride 0.9% [Normal Saline] 500 ml IV ONETIME 03/19/18 05:00 BASIC METABOLIC PANEL,BMP [CHEM] DAILY CBC WITH AUTO DIFF [HEME] DAILY CRP [C-REACTIVE PROTEIN] [CHEM] DAILY - Assessment Assessment:: Bronchiolitis - Plan Plan:: 03/18/2018 0930 Continue IV steroids, antibiotics, and Duonebs. Patient was admitted for bronchiolitis. The patient does have rhonchi on exam. Patient does not appear short of breath. Patient has been laying in bed and not getting up to ambulate per nursing staff. Staff encouraged to get him and ambulating. Patient encouraged to take a shower. The patient is alert and oriented. Conversing in full and complete sentences. WBC today is 7.4, NA 132, BUN 23, CRP 0.5. I will discontinue his fluids, he is drinking and eating without difficulty. Patient will continue medications and breathing treatments. Patient getting breathing treatment after my exam. Will continue admit. Continue IV steroids, antibiotics, and Duonebs. Patient was admitted for bronchiolitis. The patient does have rhonchi on exam. Patient does not appear short of breath. Patient has been laying in bed and not getting up to ambulate per nursing staff. Staff encouraged to get him and ambulating. Patient encouraged to take a shower. The patient is alert and oriented. Conversing in full and complete sentences. WBC today is 7.4, NA 135, BUN 26. His BUN today is 26, I have ordered a 500ml bolus. The patient continues with Alicia, will order repeat CXR. Patient has productive cough, will order a sputum cx. He is drinking and eating without difficulty. Patient will continue medications and breathing treatments. Patient getting breathing treatment after my exam. Will continue admit.
[2018-03-18] MEDS: methylPREDNISolone Sodium Succinate 125 MG/2 ML SDV IVPUSH SCH (18:04)
[2018-03-18] MEDS: Levofloxacin/Dextrose 5%-Water 500 MG in Premix Bag 1 BAG IV SCH (18:09)
[2018-03-18] MEDS: Enoxaparin 40 MG/0.4 ML Syringe SUBCUT SCH (20:03)
[2018-03-18] MEDS: Amitriptyline 10 MG Tab PO SCH (20:03)
[2018-03-18] MEDS: Tamsulosin 0.4 MG Cap.ER PO SCH (20:03)
[2018-03-18] MEDS: Latanoprost 0.005% Ophth Soln 2.5 ML Bottle EYELF SCH (20:04)
[2018-03-18] MEDS: Temazepam 15 MG Cap PO PRN (23:30)
[2018-03-19 07:44] LABS: CHLORIDE,CL 101 mEq/L (98-106); SODIUM,NA 135 mEq/L (136-145)
[2018-03-19] MEDS: Doxazosin 2 MG Tab PO SCH (08:17)
[2018-03-19] MEDS: Albuterol/Ipratropium 3.0-0.5 MG/3 ML Neb Soln NEB SCH ×4 (08:17→19:47)
[2018-03-19] MEDS: NIFEdipine 10 MG Cap PO SCH (08:18)
[2018-03-19] MEDS: Aspirin 81 MG Tab.EC PO SCH (08:18)
[2018-03-19] MEDS: Pantoprazole 40 MG Tab.CR PO SCH (08:18)
[2018-03-19] MEDS: Metoprolol Tartrate 25 MG Tab PO SCH ×2 (08:18→19:47)
[2018-03-19] MEDS: Timolol Maleate 0.5% Ophth Soln 5 ML Bottle EYEBOTH SCH ×2 (08:20→19:48)
[2018-03-19] MEDS ORDERED: Levofloxacin/Dextrose 5%-Water 250 MG in Premix Bag 1 BAG IV SCH (16:00)
[2018-03-19] MEDS: methylPREDNISolone Sodium Succinate 125 MG/2 ML SDV IVPUSH SCH (17:25)
[2018-03-19] MEDS: Tamsulosin 0.4 MG Cap.ER PO SCH (19:47)
[2018-03-19] MEDS: Enoxaparin 40 MG/0.4 ML Syringe SUBCUT SCH (19:47)
[2018-03-19] MEDS: Amitriptyline 10 MG Tab PO SCH (19:47)
[2018-03-19] MEDS: Latanoprost 0.005% Ophth Soln 2.5 ML Bottle EYELF SCH (19:48)
[2018-03-19] MEDS: Temazepam 15 MG Cap PO PRN (21:40)
[2018-03-20 07:21] VITALS: BP 140/66
[2018-03-20] MEDS: Albuterol/Ipratropium 3.0-0.5 MG/3 ML Neb Soln NEB SCH (07:56)
[2018-03-20] MEDS: NIFEdipine 10 MG Cap PO SCH (07:56)
[2018-03-20] MEDS: Aspirin 81 MG Tab.EC PO SCH (07:57)
[2018-03-20] MEDS: Metoprolol Tartrate 25 MG Tab PO SCH (07:57)
[2018-03-20] MEDS: Doxazosin 2 MG Tab PO SCH (07:57)
[2018-03-20] MEDS: Pantoprazole 40 MG Tab.CR PO SCH (07:57)
[2018-03-20] MEDS: Timolol Maleate 0.5% Ophth Soln 5 ML Bottle EYEBOTH SCH (07:58)
[2018-03-20] MEDS ORDERED: Pantoprazole 40 MG Vial IVPUSH SCH (08:00)
--- NOTE | 2018-03-20 08:13 | PCM.DCSUM1 ---
Discharge Summary - Hospital Course HPI Initial Comments: Denzel is an 87 year old male who was admitted to the hospital from the clinic on 03/14/2018 with bronchiolitis. He had reportedly had a productive cough and some shortness of breath for about 10 days prior to admission. He had failed outpatient management. Lab work was essentially benign on admission. WBC and CRP remained normal throughout stay. CXR was negative. He was negative for influenza. Sputum culture did show some gram positive cocci as well as yeast. He did have continued wheezing and coarse lung sounds throughout stay. His VS remained stable on RA. He was afebrile throughout stay. He was initially scheduled to have an EGD on 03/16, as he has been having some dysphagia, but this was cancelled due to bronchiolitis. He has had continued dysphagia and we are concerned he may be aspirating. His lung sounds do reveal rhonchi bilaterally today. He will be discharged to swing bed for continued IV antibiotics and steroids. Arrangements will be made for him to had EGD this Monday. I suspect he will be stable to discharge home prior to this. We will continue all current cares, including nebulizers, antibiotics, and steroids. - Discharge Data Discharge Date: 03/20/18 Discharge Disposition: DC/Tfer W/I Hosp To Swing Condition: Good - Discharge Diagnosis/Problem(s) (1) Bronchiolitis SNOMED Code(s): 7535955 ICD Code: J21.9 - ACUTE BRONCHIOLITIS, UNSPECIFIED Status: Acute (2) Dysphagia SNOMED Code(s): 11070039, 155515601 ICD Code: R13.10 - DYSPHAGIA, UNSPECIFIED Status: Acute Qualifiers: Dysphagia type: unspecified Qualified Code(s): R13.10 - Dysphagia, unspecified (3) Hypertension SNOMED Code(s): 58235385 ICD Code: I10 - ESSENTIAL (PRIMARY) HYPERTENSION Status: Acute Qualifiers: Hypertension type: unspecified Qualified Code(s): I10 - Essential (primary ) hypertension - Patient Summary/Data Consults: Consultations 03/14/18 17:11 Respiratory Care Assess and Treatment [CONS] Routine - Discharge Plan Home Medications: Home Meds Amitriptyline [Elavil] 20 mg PO BEDTIME 12/17/13 [History] Aspirin [Halfprin] 81 mg PO DAILY 12/17/13 [History] Nitroglycerin [Nitrostat] 0.4 mg SL ASDIRECTED PRN 12/17/13 [History] Simvastatin [Zocor] 10 mg PO BEDTIME 12/17/13 [History] Timolol Maleate [Timoptic 0.5% Ophth Soln] 1 drop EYEBOTH BID 12/17/13 [History] Bimatoprost [LUMIGAN 0.01% Ophth Soln] 1 drop EYELF BEDTIME 12/18/13 [History] Multivitamin [Multi-Vitamin Daily] 1 tab PO DAILY 11/14/14 [History] Ranitidine [Zantac] 75 mg PO DAILY PRN 11/14/14 [History] Tamsulosin [Flomax] 0.4 mg PO BEDTIME 11/14/14 [History] Acetaminophen [Tylenol Extra Strength] 500 mg PO Q6H PRN 07/30/15 [History] Cholecalciferol (Vitamin D3) [Vitamin D3] 1,000 units PO DAILY 07/30/15 [History ] Pantoprazole [ProTONIX] 40 mg PO DAILY 09/20/16 [History] Betamethasone/Propylene Glyc [Betamethasone Dp Aug 0.05% Oin] 1 applic TOP DAILY PRN 05/22/17 [History] Clotrimazole/Betamethasone Dip [Lotrisone Cream] 1 applic TOP BID PRN 05/22/17 [ History] Hydrocodone/Acetaminophen [Hydrocodon-Acetaminophn 10-325] 1 tab PO Q4H PRN [History] Metoprolol Tartrate [Lopressor] 12.5 mg PO BID 05/29/17 [History] Doxazosin Mesylate [Cardura] 2 mg PO DAILY 02/22/18 [History] NIFEdipine [Procardia] 10 mg PO DAILY 02/22/18 [History] Sucralfate 1 gm PO TID 02/22/18 [History] ALPRAZolam [Xanax] 0.25 mg PO BEDTIME PRN 03/14/18 [History] - Discharge Summary/Plan Comment DC Time >30 min.: No - General Info Date of Service: 03/20/18 Admission Dx/Problem (Free Text: Bronchiolitis Subjective Update: Patient reports he continues to have a productive cough and some shortness of breath. He feels he is about the same. He has not had a fever. Functional Status: Reports: Pain Controlled, Tolerating Diet, Ambulating, Urinating. Denies: New Symptoms - Review of Systems General: Reports: Weakness, Fatigue. Denies: Fever, Chills HEENT: Reports: Dysphasia, Post Nasal Drip. Denies: Sinus Congestion, Sore Throat, Rhinitis Pulmonary: Reports: Shortness of Breath, Pleuritic Chest Pain, Cough, Sputum, Wheezing. Denies: Hemoptysis Cardiovascular: Reports: Dyspnea on Exertion. Denies: Chest Pain, Palpitations , Edema, Lightheadedness Gastrointestinal: Reports: No Symptoms. Denies: Abdominal Pain, Decreased Appetite, Diarrhea, Nausea, Vomiting Genitourinary: Reports: No Symptoms Musculoskeletal: Reports: No Symptoms Skin: Reports: No Symptoms Neurological: Reports: No Symptoms Psychiatric: Reports: No Symptoms - Patient Data Vitals - Most Recent: Last Vital Signs Temp 97.1 F 03/20/18 07:20 Pulse 56 L 03/20/18 07:57 Resp 16 03/20/18 07:20 BP 140/66 03/20/18 07:57 Pulse Ox 97 03/20/18 07:20 Weight - Most Recent: 144 lb 9.972 oz Lab Results - Last 24 hrs: Laboratory Results - last 24 hr 03/19/18 03/19/18 Range/Units 07:12 07:53 D-Dimer, Quantitative 0.51 H (0.00-0.50) BUN 26 H (7-18) mg/dL CORNELIO Results - Last 24 hrs: Microbiology 03/19/18 07:00 Gram Stain - Final Sputum - Expectorated Med Orders - Current: Current Medications Acetaminophen (Tylenol) 650 mg PO Q4H PRN PRN Reason: Pain (Mild 1-3)/fever Last Admin: 03/16/18 23:44 Dose: 650 mg Hydrocodone Bitart/Acetaminophen ([place] 325-5 Mg) 2 tab PO Q4H PRN PRN Reason: PAIN Albuterol/Ipratropium (Duoneb 3.0-0.5 Mg/3 Ml) 3 ml NEB QIDRT [facility] Last Admin: 03/20/18 07:56 Dose: 3 ml Alprazolam (Xanax) 0.25 mg PO BEDTIME PRN PRN Reason: Anxiety Amitriptyline HCl (Elavil) 10 mg PO BEDTIME [facility] Last Admin: 03/19/18 19:47 Dose: 10 mg Aspirin (Halfprin) 81 mg PO DAILY [facility] Last Admin: 03/20/18 07:57 Dose: 81 mg Doxazosin Mesylate (Cardura) 2 mg PO DAILY [facility] Last Admin: 03/20/18 07:57 Dose: 2 mg Enoxaparin Sodium (Lovenox) 40 mg SUBCUT Q24H [facility] Last Admin: 03/19/18 19:47 Dose: 40 mg Levofloxacin/Dextrose 250 mg/ (Premix) 50 mls @ 50 mls/hr IV DAILY@1600 [facility] Last Admin: 03/19/18 16:46 Dose: 50 mls/hr Latanoprost (Xalatan 0.005% Ophth Soln) 0 ml EYELF BEDTIME [facility] Last Admin: 03/19/18 19:48 Dose: 1 drop Methylprednisolone Sodium Succinate (Solu-Medrol) 62.5 mg IVPUSH Q24H [facility] Last Admin: 03/19/18 17:25 Dose: 62.5 mg Metoprolol Tartrate (Lopressor) 25 mg PO BID [facility] Last Admin: 03/20/18 07:57 Dose: 25 mg Nifedipine (Procardia) 10 mg PO DAILY [facility] Last Admin: 03/20/18 07:56 Dose: 10 mg Nitroglycerin (Nitrostat) 0.4 mg SL ASDIRECTED PRN PRN Reason: Chest Pain Pantoprazole Sodium (Protonix Iv) 40 mg IVPUSH Q24H [facility] Sucralfate (Carafate) 1 gm PO TIDAC [facility] Tamsulosin HCl (Flomax) 0.4 mg PO BEDTIME [facility] Last Admin: 03/19/18 19:47 Dose: 0.4 mg Temazepam (Restoril) 15 mg PO BEDTIME PRN PRN Reason: Insomnia Last Admin: 03/19/18 21:40 Dose: 15 mg Timolol Maleate (Timoptic 0.5% Ophth Soln) 0 ml EYEBOTH BID [facility] Last Admin: 03/20/18 07:58 Dose: 1 drop Discontinued Medications Amitriptyline HCl (Elavil) 20 mg PO BEDTIME [facility] Last Admin: 03/14/18 21:23 Dose: Not Given Azithromycin 500 mg/ Sodium (Chloride) 250 mls @ 250 mls/hr IV Q24H [facility] Last Admin: 03/15/18 17:42 Dose: 250 mls/hr Lactated Ringer's (Ringers, Lactated) 1,000 mls @ 50 mls/hr IV ASDIRECTED [facility] Last Admin: 03/16/18 12:03 Dose: 50 mls/hr Levofloxacin/Dextrose 500 mg/ (Premix) 100 mls @ 100 mls/hr IV Q24H [facility] Last Admin: 03/18/18 18:09 Dose: 100 mls/hr Sodium Chloride (Normal Saline) 1,000 mls @ 75 mls/hr IV ASDIRECTED [facility] Sodium Chloride (Normal Saline) 500 mls @ 500 mls/hr IV ONETIME ONE Stop: 03/18/18 10:44 Last Admin: 03/18/18 10:10 Dose: 500 mls/hr Latanoprost (Xalatan 0.005% Oph Soln) 0 ml EYELF BEDTIME [facility] Last Admin: 03/14/18 21:24 Dose: Not Given Metoprolol Tartrate (Lopressor) 12.5 mg PO BID [facility] Last Admin: 03/14/18 21:24 Dose: Not Given Pantoprazole Sodium (Protonix) 40 mg PO DAILY [facility] Last Admin: 03/20/18 07:57 Dose: 40 mg PtomNifedipine (10 Mg Cap) 0 each PO DAILY [facility] Last Admin: 03/16/18 08:21 Dose: 1 each PtomPantoprazole (40 Mg Tab) 0 each PO DAILY [facility] Last Admin: 03/16/18 08:21 Dose: 1 each PtomMetoprolol (25 Mg Tab) 0 each PO BID [facility] Last Admin: 03/16/18 08:21 Dose: 1 each PtomTamsulosin 0 (.4 Mg Cap) 0 each PO BEDTIME [facility] Last Admin: 03/15/18 19:40 Dose: 1 each Ptom Amitriptyline 10 Mg Tab 0 each PO BEDTIME [facility] Last Admin: 03/15/18 19:40 Dose: 1 each PtomTimolol 0.5% (Eye Drops) 0 each EYEBOTH BID [facility] Last Admin: 03/16/18 08:22 Dose: 1 each PtomLumigan 0.5% (Eye Drops) 0 each EYELF BEDTIME [facility] Last Admin: 03/15/18 19:41 Dose: 1 each Tamsulosin HCl (Flomax) 0.4 mg PO BEDTIME [facility] Last Admin: 03/14/18 21:23 Dose: Not Given Timolol Maleate (Timoptic 0.5% Ophth Soln) 0 ml EYEBOTH BID [facility] Last Admin: 03/14/18 21:24 Dose: Not Given - Exam Quality Assessment: Reports: DVT Prophylaxis. Denies: Supplemental Oxygen General: Reports: Alert, Oriented, No Acute Distress Neck: Reports: Supple Lungs: Reports: Normal Respiratory Effort, Rhonchi (bilatearl ), Wheezing ( diffuse) Cardiovascular: Reports: Regular Rate, Regular Rhythm GI/Abdominal Exam: Normal Bowel Sounds, Soft, Non-Tender, No Organomegaly, No Distention, No Abnormal Bruit, No Mass, Pelvis Stable Back Exam: Reports: Normal Inspection, Full Range of Motion Extremities: Normal Inspection, Normal Range of Motion, Non-Tender, No Pedal Edema, Normal Capillary Refill Skin: Reports: Warm, Dry Neurological: Reports: No New Focal Deficit Psy/Mental Status: Reports: Alert, Normal Affect, Normal Mood
--- NOTE | 2018-03-20 10:04 | PN ---
DATE: 03/19/2018 S: The patient is in with persistent cough. O: NECK: Supple. CHEST: Wheezing throughout. CARDIAC: Sounds are good. No edema. ASSESSMENT: BRONCHIOLITIS. P: Continue present therapy. ISI /[id number]
[2018-03-20] MEDS ORDERED: Sucralfate 1 GM Tab PO SCH (11:30)
== END 2018-03-20 08:35 | disposition swing bed (61) | DRG 203 ==
LOC: CC.MS 15:32 → CC.FCMC 15:32 → UNDOADMOB 15:44 → INTOOBSV 15:44 → CC.MS 15:44 → UNDOADMOB 17:11 → CC.MS 17:11 → INTOOBSV 03-16 07:56 → OBSVTOIN 03-16 07:56 → CC.MS 03-17 16:27
PROVIDERS: ADMIT Physician Assistant Medical; ATTEND General Practice
DX: J21.9 Acute bronchiolitis, unspecified (principal); F41.9 Anxiety disorder, unspecified; M25.50 Pain in unspecified joint; I25.10 Atherosclerotic heart disease of native coronary artery without angina pectoris; K21.9 Gastro-esophageal reflux disease without esophagitis; I10 Essential (primary) hypertension; E78.00 Pure hypercholesterolemia, unspecified; G47.00 Insomnia, unspecified; K58.1 Irritable bowel syndrome with constipation; R13.10 Dysphagia, unspecified; Z88.1 Allergy status to other antibiotic agents; Z88.2 Allergy status to sulfonamides; Z88.8 Allergy status to other drugs, medicaments and biological substances; Z79.82 Long term (current) use of aspirin; Z79.899 Other long term (current) drug therapy; Z87.11 Personal history of peptic ulcer disease; Z85.46 Personal history of malignant neoplasm of prostate; Z95.1 Presence of aortocoronary bypass graft; Z98.84 Bariatric surgery status; Z96.652 Presence of left artificial knee joint; Z87.891 Personal history of nicotine dependence; R09.81 Nasal congestion; R09.89 Other specified symptoms and signs involving the circulatory and respiratory systems; R53.83 Other fatigue; R53.1 Weakness; R11.0 Nausea; R50.9 Fever, unspecified
CPT/HCPCS: 36415 ×3; 71046; 80048; 80053; 85025 ×2; 86140 ×2; 87804 ×2; 94640 ×5; A9270 ×3; J0456 ×2; J1650; J2930 ×2; J7050 ×2; J7120 ×2; 83735; 83880; 85379; 87070; 87205; 96361; 96372; 96374; 96376; C9113; G0378; J1956; J7040

== ENCOUNTER 2018-03-20 08:41 | Inpatient (IN) | payer MEDICARE, BC ==
[2018-03-20] MEDS ORDERED: ALPRAZolam 0.25 MG Tab PO PRN (10:02)
[2018-03-20] MEDS ORDERED: Acetaminophen/HYDROcodone 325-5 MG Tab PO PRN (10:02)
[2018-03-20] MEDS ORDERED: Acetaminophen 325 MG Tab PO PRN (10:02)
[2018-03-20] MEDS ORDERED: Nitroglycerin 0.4 MG Tab.SL SL PRN (10:02)
[2018-03-20] MEDS: Sucralfate 1 GM Tab PO SCH ×2 (11:52→17:19)
[2018-03-20] MEDS: Albuterol/Ipratropium 3.0-0.5 MG/3 ML Neb Soln NEB SCH ×3 (13:12→19:43)
[2018-03-20] MEDS ORDERED: methylPREDNISolone Sodium Succinate 125 MG/2 ML SDV IVPUSH SCH (16:00)
[2018-03-20] MEDS: Levofloxacin/Dextrose 5%-Water 250 MG in Premix Bag 1 BAG IV SCH (17:27)
[2018-03-20] MEDS: Amitriptyline 10 MG Tab PO SCH (19:43)
[2018-03-20] MEDS: Tamsulosin 0.4 MG Cap.ER PO SCH (19:43)
[2018-03-20] MEDS: Timolol Maleate 0.5% Ophth Soln 5 ML Bottle EYEBOTH SCH (19:44)
[2018-03-20] MEDS: Latanoprost 0.005% Ophth Soln 2.5 ML Bottle EYELF SCH (19:45)
[2018-03-20] MEDS: Metoprolol Tartrate 25 MG Tab PO SCH (19:50)
[2018-03-20] MEDS: Enoxaparin 40 MG/0.4 ML Syringe SUBCUT SCH (19:51)
[2018-03-20] MEDS: Temazepam 15 MG Cap PO PRN (22:30)
[2018-03-21] MEDS: Sucralfate 1 GM Tab PO SCH ×3 (06:49→16:30)
[2018-03-21] MEDS ORDERED: Aspirin 81 MG Tab.EC PO SCH (08:00)
[2018-03-21] MEDS: Albuterol/Ipratropium 3.0-0.5 MG/3 ML Neb Soln NEB SCH ×4 (08:14→19:37)
[2018-03-21] MEDS: Metoprolol Tartrate 25 MG Tab PO SCH ×2 (08:14→19:35)
[2018-03-21] MEDS: Pantoprazole 40 MG Vial IVPUSH SCH (08:14)
[2018-03-21] MEDS: Doxazosin 2 MG Tab PO SCH (08:14)
[2018-03-21] MEDS: NIFEdipine 10 MG Cap PO SCH (08:14)
[2018-03-21] MEDS: Timolol Maleate 0.5% Ophth Soln 5 ML Bottle EYEBOTH SCH ×2 (08:15→19:38)
[2018-03-21] MEDS ORDERED: Bisacodyl 5 MG Tab PO PRN (08:56)
[2018-03-21] MEDS: Codeine/Promethazine 10-6.25 MG/5 ML Syrup 5 ML UD Cup PO PRN ×2 (09:50→16:30)
[2018-03-21] MEDS: Fluconazole 100 MG Tab PO SCH (15:58)
[2018-03-21] MEDS: Levofloxacin/Dextrose 5%-Water 250 MG in Premix Bag 1 BAG IV SCH (16:04)
[2018-03-21] MEDS: Tamsulosin 0.4 MG Cap.ER PO SCH (19:37)
[2018-03-21] MEDS: Amitriptyline 10 MG Tab PO SCH (19:37)
[2018-03-21] MEDS: Enoxaparin 40 MG/0.4 ML Syringe SUBCUT SCH (19:37)
[2018-03-21] MEDS: Latanoprost 0.005% Ophth Soln 2.5 ML Bottle EYELF SCH (19:39)
[2018-03-21] MEDS: Temazepam 15 MG Cap PO PRN (22:30)
[2018-03-22] MEDS ORDERED: Magnesium Hydroxide 400 MG/5 ML Susp 30 ML Cup PO PRN (07:52)
[2018-03-22] MEDS: Pantoprazole 40 MG Vial IVPUSH SCH (07:56)
[2018-03-22] MEDS: Sucralfate 1 GM Tab PO SCH ×3 (07:56→17:43)
[2018-03-22] MEDS: Albuterol/Ipratropium 3.0-0.5 MG/3 ML Neb Soln NEB SCH (07:56)
[2018-03-22] MEDS: NIFEdipine 10 MG Cap PO SCH (07:58)
[2018-03-22] MEDS: Fluconazole 100 MG Tab PO SCH (07:58)
[2018-03-22] MEDS: Doxazosin 2 MG Tab PO SCH (07:58)
[2018-03-22] MEDS: Metoprolol Tartrate 25 MG Tab PO SCH ×2 (07:58→19:53)
[2018-03-22] MEDS: Timolol Maleate 0.5% Ophth Soln 5 ML Bottle EYEBOTH SCH ×2 (08:00→19:54)
[2018-03-22] MEDS: Codeine/Promethazine 10-6.25 MG/5 ML Syrup 5 ML UD Cup PO PRN (08:37)
[2018-03-22] MEDS ORDERED: Albuterol/Ipratropium 3.0-0.5 MG/3 ML Neb Soln NEB PRN (09:17)
--- NOTE | 2018-03-22 09:26 | PCM.SN ---
- Free Text/Narrative Note: S: Denzel is an 87 year old male who is hospitalized for bronchiolitis. CXRs have been negative. Labs have been stable. He reports "his lungs are better." He does continue to have sensation of something stuck in his throat. He reports that "nothing below the belt is working." He reports his abdomen is distended and he has not have a bowel movement for some time. He reports he has been urianting very little amounts at a time. Does reports he has occassionaly sharp abdominal pain. He has not taken anything for his bowels yet. Denies any nausea or vomiting. ROS otherwise negative. Sputum did show yeast. He is being treated with 10 day course of diflucan. He is scheduled to undergo EGD. They will be doing the EGD April 06. Discussed with patient that we have no skilled reason to keep him swing bed. We will plan for discharge tomorrow. Patient is agreeable with this. O: VSS on RA HEENT: Difficulty swallowing, drainage in throat Lungs: Clear throughout, no increased work of breathing Heart: Regular rate and rhythm Abdomen: bowel sounds active, tenderness with palpation, no bladder distension Extremities: no edema A: Yeast Bronchiolitis Constipation Dysphagia P: We will plan for discharge tomorrow. Patient will need daily fluconazole x 10 days. Plan for EGD April 06. MOM and miralax as needed for constipation. Encourage activity. Increase fluid intake. Nursing to monitor I & O.
[2018-03-22] MEDS: Polyethylene Glycol 3350 Powder 17 GM Packet PO SCH (09:50)
[2018-03-22] MEDS: Enoxaparin 40 MG/0.4 ML Syringe SUBCUT SCH (19:53)
[2018-03-22] MEDS: Tamsulosin 0.4 MG Cap.ER PO SCH (19:53)
[2018-03-22] MEDS: Amitriptyline 10 MG Tab PO SCH (19:53)
[2018-03-22] MEDS ORDERED: Calcium Carbonate 500 MG Tab.Chew PO PRN (20:11)
[2018-03-22] MEDS: Temazepam 15 MG Cap PO PRN (22:30)
[2018-03-23 07:26] VITALS: BP 124/74
[2018-03-23] MEDS ORDERED: BIMATOPROST 0.01% EYEBOTH SCH (08:00)
[2018-03-23] MEDS: Sucralfate 1 GM Tab PO SCH ×2 (08:32→11:41)
[2018-03-23] MEDS: Doxazosin 2 MG Tab PO SCH (08:32)
[2018-03-23] MEDS: Fluconazole 100 MG Tab PO SCH (08:33)
[2018-03-23] MEDS: Polyethylene Glycol 3350 Powder 17 GM Packet PO SCH (08:33)
[2018-03-23] MEDS: Timolol Maleate 0.5% Ophth Soln 5 ML Bottle EYEBOTH SCH (08:35)
[2018-03-23] MEDS: NIFEdipine 10 MG Cap PO SCH (08:35)
[2018-03-23] MEDS: Pantoprazole 40 MG Vial IVPUSH SCH (08:37)
[2018-03-23] MEDS: Metoprolol Tartrate 25 MG Tab PO SCH (08:39)
--- NOTE | 2018-03-23 12:41 | PCM.DCSUM1 ---
Discharge Summary - Hospital Course HPI Initial Comments: Denzel is an 87 year old male who was admitted to the hospital from the clinic on 03/14/2018 with bronchiolitis. He has reportedly has a productive cough and some shortness of breath for about 10 days prior to admission. He had failed outpatient management. Lab work was essentially benign throughout hospital stay. CXR was negative. Influenza was also negative. Sputum culture did show yeast. He was discharged to swing bed on 03/16/2018 for continued IV steroids and nebulizers. He was started on PO diflucan for yeast. He was discharged to swing bed for continued IV steroids and nebulizers. Patient did not feel he was ready to go home. He continued to have some dysphagia. He was supposed to have an EGD, but given patients symptoms and yeast on sputum this was rescheduled for 04/06/2018. His lung sounds improved throughout hospital stay and were clear at time of discharge. WBC and CRP remained normal throughout stay. Patient did have CXR repeated during stay, which was also clear for any inflitrates. He was slow to progress, but on the day of discharge he felt ready to discharge home. He is to follow up with Dr. Sanders on 03/28/2018. He will be on Diflucan daily for the next 7 days. He will also be discharged home with Duonebs and restoril as needed for insomnia. Patient had multiple requests for medication refills. I will refill his medications. Patient is scheduled to have EGD on 04/06/2018. - Discharge Data Discharge Date: 03/23/18 Discharge Disposition: Home, Self-Care 01 Condition: Good - Discharge Diagnosis/Problem(s) (1) Esophageal yeast infection SNOMED Code(s): 26443652 ICD Code: B37.81 - CANDIDAL ESOPHAGITIS Status: Acute (2) Bronchiolitis SNOMED Code(s): 5805996 ICD Code: J21.9 - ACUTE BRONCHIOLITIS, UNSPECIFIED Status: Acute (3) Dysphagia SNOMED Code(s): 80617515, 005350114 ICD Code: R13.10 - DYSPHAGIA, UNSPECIFIED Status: Acute Qualifiers: Dysphagia type: unspecified - Patient Summary/Data Consults: Consultations 03/20/18 10:02 Respiratory Care Assess and Treatment [CONS] Routine - Patient Instructions Diet: Usual Diet as Tolerated Activity: As Tolerated Notify Provider of: Fever, Increased Pain, Swelling and Redness, Nausea and/or Vomiting - Discharge Plan Prescriptions/Med Rec: Codeine/Promethazine [Phenergan with Codeine] 10 ml PO Q6H PRN #240 ml PRN Reason: Cough Fluconazole [Diflucan] 100 mg PO DAILY 7 Days #7 tablet Temazepam [Restoril] 15 mg PO BEDTIME PRN #20 cap PRN Reason: Insomnia Home Medications: Home Meds Amitriptyline [Elavil] 20 mg PO BEDTIME 12/17/13 [History] Aspirin [Halfprin] 81 mg PO DAILY 12/17/13 [History] Nitroglycerin [Nitrostat] 0.4 mg SL ASDIRECTED PRN 12/17/13 [History] Simvastatin [Zocor] 10 mg PO BEDTIME 12/17/13 [History] Timolol Maleate [Timoptic 0.5% Ophth Soln] 1 drop EYEBOTH BID 12/17/13 [History] Bimatoprost [LUMIGAN 0.01% Ophth Soln] 1 drop EYELF BEDTIME 12/18/13 [History] Multivitamin [Multi-Vitamin Daily] 1 tab PO DAILY 11/14/14 [History] Ranitidine [Zantac] 75 mg PO DAILY PRN 11/14/14 [History] Tamsulosin [Flomax] 0.4 mg PO BEDTIME 11/14/14 [History] Acetaminophen [Tylenol Extra Strength] 500 mg PO Q6H PRN 07/30/15 [History] Cholecalciferol (Vitamin D3) [Vitamin D3] 1,000 units PO DAILY 07/30/15 [History ] Pantoprazole [ProTONIX] 40 mg PO DAILY 09/20/16 [History] Betamethasone/Propylene Glyc [Betamethasone Dp Aug 0.05% Oin] 1 applic TOP DAILY PRN 05/22/17 [History] Clotrimazole/Betamethasone Dip [Lotrisone Cream] 1 applic TOP BID PRN 05/22/17 [ History] Hydrocodone/Acetaminophen [Hydrocodon-Acetaminophn 10-325] 1 tab PO Q4H PRN [History] Metoprolol Tartrate [Lopressor] 12.5 mg PO BID 05/29/17 [History] NIFEdipine [Procardia] 10 mg PO DAILY 02/22/18 [History] Sucralfate 1 gm PO TID 02/22/18 [History] ALPRAZolam [Xanax] 0.25 mg PO BEDTIME PRN 03/14/18 [History] Codeine/Promethazine [Phenergan with Codeine] 10 ml PO Q6H PRN #240 ml 03/23/18 [Rx] Doxazosin Mesylate [Cardura] 2 mg PO DAILY 30 Days #30 03/23/18 [Rx] Fluconazole [Diflucan] 100 mg PO DAILY 7 Days #7 tablet 03/23/18 [Rx] Temazepam [Restoril] 15 mg PO BEDTIME PRN #20 cap 03/23/18 [Rx] Patient Handouts: Esophagitis, Bronchospasm, Adult, [id number], Gastroesophageal Reflux Disease, Adult, [id number] Referrals: Bk Sanders MD [Primary Care Provider] - - Discharge Summary/Plan Comment DC Time >30 min.: Yes (Greater than 60 minutes spent in care and corrdination of d/c) - General Info Date of Service: 03/23/18 Admission Dx/Problem (Free Text: Bronchiolitis Subjective Update: Patient reports he is feeling much better. Does continue to have dysphagia. COugh has improved. Patient has no complaints. Functional Status: Reports: Pain Controlled, Tolerating Diet, Ambulating, Urinating. Denies: New Symptoms - Review of Systems General: Denies: Fever, Weakness, Fatigue, Chills HEENT: Reports: Post Nasal Drip. Denies: Sinus Congestion, Sore Throat, Rhinitis, Visual Changes Pulmonary: Reports: Cough. Denies: Shortness of Breath, Pleuritic Chest Pain, Sputum, Hemoptysis, Wheezing Cardiovascular: Reports: No Symptoms Gastrointestinal: Reports: No Symptoms. Denies: Abdominal Pain, Constipation, Decreased Appetite, Diarrhea, Nausea, Vomiting Genitourinary: Reports: No Symptoms. Denies: Dysuria, Frequency, Urgency, Retention Musculoskeletal: Reports: No Symptoms Skin: Reports: No Symptoms Neurological: Reports: No Symptoms Psychiatric: Reports: No Symptoms - Patient Data Vitals - Most Recent: Last Vital Signs Temp 97.0 F 03/23/18 07:24 Pulse 56 L 03/23/18 08:39 Resp 16 03/23/18 07:24 BP 124/74 03/23/18 08:35 Pulse Ox 99 03/23/18 07:24 Weight - Most Recent: 150 lb 5.684 oz I&O - Last 24 hours: Intake & Output 03/22/18 03/23/18 03/23/18 22:59 06:59 14:59 Output Total 300 Balance -300 Med Orders - Current: Current Medications Acetaminophen (Tylenol) 650 mg PO Q4H PRN PRN Reason: Pain (Mild 1-3)/fever Hydrocodone Bitart/Acetaminophen ([place] 325-5 Mg) 2 tab PO Q4H PRN PRN Reason: PAIN Albuterol/Ipratropium (Duoneb 3.0-0.5 Mg/3 Ml) 3 ml NEB QIDRT PRN PRN Reason: Dyspnea Alprazolam (Xanax) 0.25 mg PO BEDTIME PRN PRN Reason: Anxiety Amitriptyline HCl (Elavil) 10 mg PO BEDTIME [facility] Last Admin: 03/22/18 19:53 Dose: 10 mg Aspirin (Halfprin) 81 mg PO DAILY [facility] Last Admin: 03/23/18 08:33 Dose: 81 mg Bisacodyl (Dulcolax) 10 mg PO DAILY PRN PRN Reason: Constipation Last Admin: 03/21/18 09:50 Dose: 10 mg Calcium Carbonate/Glycine (Tums) 500 mg PO QID PRN PRN Reason: Dyspepsia Last Admin: 03/22/18 20:54 Dose: 500 mg Doxazosin Mesylate (Cardura) 2 mg PO DAILY [facility] Last Admin: 03/23/18 08:32 Dose: 2 mg Enoxaparin Sodium (Lovenox) 40 mg SUBCUT Q24H [facility] Last Admin: 03/22/18 19:53 Dose: 40 mg Fluconazole (Diflucan) 100 mg PO DAILY [facility] Last Admin: 03/23/18 08:33 Dose: 100 mg Magnesium Hydroxide (Milk Of Magnesia) 30 ml PO BID PRN PRN Reason: Constipation Last Admin: 03/22/18 08:37 Dose: 30 ml Metoprolol Tartrate (Lopressor) 25 mg PO BID [facility] Last Admin: 03/23/18 08:39 Dose: Not Given Nifedipine (Procardia) 10 mg PO DAILY [facility] Last Admin: 03/23/18 08:35 Dose: 10 mg Nitroglycerin (Nitrostat) 0.4 mg SL ASDIRECTED PRN PRN Reason: Chest Pain Ptom Bimatoprost Ophthalmic Drops 0. 01% 0 each EYEBOTH DAILY [facility] Last Admin: 03/23/18 08:34 Dose: Not Given Pantoprazole Sodium (Protonix Iv) 40 mg IVPUSH Q24H [facility] Last Admin: 03/23/18 08:37 Dose: 40 mg Polyethylene Glycol (Miralax) 17 gm PO DAILY [facility] Last Admin: 03/23/18 08:33 Dose: 17 gm Promethazine HCl/Codeine (Phenergan With Codeine) 10 ml PO Q6H PRN PRN Reason: Cough Last Admin: 03/22/18 08:37 Dose: 10 ml Sucralfate (Carafate) 1 gm PO TIDAC [facility] Last Admin: 03/23/18 11:41 Dose: 1 gm Tamsulosin HCl (Flomax) 0.4 mg PO BEDTIME [facility] Last Admin: 03/22/18 19:53 Dose: 0.4 mg Temazepam (Restoril) 15 mg PO BEDTIME PRN PRN Reason: Insomnia Last Admin: 03/22/18 22:30 Dose: 15 mg Timolol Maleate (Timoptic 0.5% Ophth Soln) 0 ml EYEBOTH BID [facility] Last Admin: 03/23/18 08:35 Dose: 1 drop Discontinued Medications Albuterol/Ipratropium (Duoneb 3.0-0.5 Mg/3 Ml) 3 ml NEB QIDRT [facility] Last Admin: 03/22/18 07:56 Dose: 3 ml Levofloxacin/Dextrose 250 mg/ (Premix) 50 mls @ 50 mls/hr IV DAILY@1600 [facility] Last Admin: 03/21/18 16:04 Dose: 50 mls/hr Latanoprost (Xalatan 0.005% Ophth Soln) 0 ml EYELF BEDTIME [facility] Last Admin: 03/21/18 19:39 Dose: Not Given Methylprednisolone Sodium Succinate (Solu-Medrol) 62.5 mg IVPUSH Q24H [facility] Last Admin: 03/20/18 17:19 Dose: 62.5 mg - Exam General: Reports: Alert, Oriented Neck: Reports: Supple Lungs: Reports: Clear to Auscultation, Normal Respiratory Effort Cardiovascular: Reports: Regular Rate, Regular Rhythm GI/Abdominal Exam: Normal Bowel Sounds, Soft, Non-Tender, No Organomegaly, No Distention, No Abnormal Bruit, No Mass, Pelvis Stable Back Exam: Reports: Normal Inspection, Full Range of Motion. Denies: CVA Tenderness (L), CVA Tenderness (R) Extremities: Normal Inspection, Normal Range of Motion, Non-Tender, No Pedal Edema, Normal Capillary Refill Skin: Reports: Warm, Dry, Intact Neurological: Reports: No New Focal Deficit Psy/Mental Status: Reports: Alert, Normal Affect, Normal Mood
== END 2018-03-23 13:45 | disposition home or self-care (01) | DRG 202 ==
LOC: CC.MS 08:41
PROVIDERS: ADMIT General Practice; ATTEND General Practice
DX: J21.9 Acute bronchiolitis, unspecified (principal); B37.81 Candidal esophagitis; R13.10 Dysphagia, unspecified; G47.00 Insomnia, unspecified; F41.9 Anxiety disorder, unspecified; M25.50 Pain in unspecified joint; I25.10 Atherosclerotic heart disease of native coronary artery without angina pectoris; R53.83 Other fatigue; K21.9 Gastro-esophageal reflux disease without esophagitis; I10 Essential (primary) hypertension; E78.5 Hyperlipidemia, unspecified; K58.1 Irritable bowel syndrome with constipation; K29.70 Gastritis, unspecified, without bleeding; Z88.1 Allergy status to other antibiotic agents; Z88.2 Allergy status to sulfonamides; Z88.8 Allergy status to other drugs, medicaments and biological substances; Z79.82 Long term (current) use of aspirin; Z79.899 Other long term (current) drug therapy; Z85.46 Personal history of malignant neoplasm of prostate; Z95.1 Presence of aortocoronary bypass graft; Z98.84 Bariatric surgery status; Z96.652 Presence of left artificial knee joint; Z87.891 Personal history of nicotine dependence
CPT/HCPCS: 94640; A9270-GY; C9113; J1650; J1956; J2930

== ENCOUNTER 2018-04-19 22:35 | Emergency (ER) | payer MEDICARE, BC ==
[2018-04-19 23:20] LABS: CHLORIDE,CL 98 mEq/L (98-106); SODIUM,NA 131 mEq/L (136-145)
--- NOTE | 2018-04-19 23:23 | EDM.PDOC ---
ED HPI GENERAL MEDICAL PROBLEM - General Chief Complaint: General Stated Complaint: weak Time Seen by Provider: 04/19/18 23:00 Source of Information: Reports: Patient History Limitations: Reports: No Limitations - History of Present Illness INITIAL COMMENTS - FREE TEXT/NARRATIVE: My heart beat wasn't right today. I can see the heartbeat on my BP monitor and it wasn't regular. I have PAC's but I don't think that is what it was. During the day he felt a little SOB and used a nebulizer and that helped. Didn't run the air conditioner as he likes t warm. Denies any chest pain with this. He does feel weaker. No edema. No cough. No dizziness. Did eat normal today. His BP was under 100 this AM so only took 1/2 of metoprolol. This evening was 159/ so he took 1/2 tablet. Onset: Gradual Location: Reports: Generalized - Related Data Allergies Allergy/AdvReac Type Severity Reaction Status Date / Time cephalexin Allergy Cannot Verified 04/19/18 22:45 Remember escitalopram Allergy Rash Verified 04/19/18 22:45 procainamide HCl Allergy Cannot Verified 04/19/18 22:45 [From Procan SR] Remember Sulfa (Sulfonamide Allergy Nausea and Verified 04/19/18 22:45 Antibiotics) Vomiting Home Meds: Home Meds Amitriptyline [Elavil] 20 mg PO BEDTIME 12/17/13 [History] Aspirin [Halfprin] 81 mg PO DAILY 12/17/13 [History] Nitroglycerin [Nitrostat] 0.4 mg SL ASDIRECTED PRN 12/17/13 [History] Simvastatin [Zocor] 10 mg PO BEDTIME 12/17/13 [History] Timolol Maleate [Timoptic 0.5% Ophth Soln] 1 drop EYEBOTH BID 12/17/13 [History] Bimatoprost [LUMIGAN 0.01% Ophth Soln] 1 drop EYELF BEDTIME 12/18/13 [History] Multivitamin [Multi-Vitamin Daily] 1 tab PO DAILY 11/14/14 [History] Ranitidine [Zantac] 75 mg PO DAILY PRN 11/14/14 [History] Tamsulosin [Flomax] 0.4 mg PO BEDTIME 11/14/14 [History] Acetaminophen [Tylenol Extra Strength] 500 mg PO Q6H PRN 07/30/15 [History] Cholecalciferol (Vitamin D3) [Vitamin D3] 1,000 units PO DAILY 07/30/15 [History ] Pantoprazole [ProTONIX] 40 mg PO DAILY 09/20/16 [History] Betamethasone/Propylene Glyc [Betamethasone Dp Aug 0.05% Oin] 1 applic TOP DAILY PRN 05/22/17 [History] Clotrimazole/Betamethasone Dip [Lotrisone Cream] 1 applic TOP BID PRN 05/22/17 [ History] Hydrocodone/Acetaminophen [Hydrocodon-Acetaminophn 10-325] 1 tab PO Q4H PRN [History] Metoprolol Tartrate [Lopressor] 12.5 mg PO BID 05/29/17 [History] NIFEdipine [Procardia] 10 mg PO DAILY 02/22/18 [History] Sucralfate 1 gm PO TID 02/22/18 [History] ALPRAZolam [Xanax] 0.25 mg PO BEDTIME PRN 03/14/18 [History] Codeine/Promethazine [Phenergan with Codeine] 10 ml PO Q6H PRN #240 ml 03/23/18 [Rx] Doxazosin Mesylate [Cardura] 2 mg PO DAILY 30 Days #30 03/23/18 [Rx] Fluconazole [Diflucan] 100 mg PO DAILY 7 Days #7 tablet 03/23/18 [Rx] Temazepam [Restoril] 15 mg PO BEDTIME PRN #20 cap 03/23/18 [Rx] Past Medical History HEENT History: Reports: Cataract, Glaucoma Cardiovascular History: Reports: Bypass, CAD, High Cholesterol, Hypertension Gastrointestinal History: Reports: Chronic Constipation, Diverticulosis, GERD, Inflammatory Bowel Disease, Other (See Below) Other Gastrointestinal History: Strangulated hernia Musculoskeletal History: Reports: Arthritis, Back Pain, Chronic, Neck Pain, Chronic, Osteoarthritis Neurological History: Reports: TIA Psychiatric History: Reports: Anxiety Endocrine/Metabolic History: Reports: Vitamin D Deficiency Oncologic (Cancer) History: Reports: Prostate - Past Surgical History Cardiovascular Surgical History: Reports: Coronary Artery Bypass GI Surgical History: Reports: Hernia, Abdominal Musculoskeletal Surgical History: Reports: Knee Replacement Social & Family History - Family History Family Medical History: Noncontributory HEENT: Reports: None Cardiac: Reports: None Respiratory: Reports: None GI: Reports: GERD Musculoskeletal: Reports: Arthritis - Caffeine Use Caffeine Use: Reports: Coffee - Living Situation & Occupation Living situation: Reports: , with Spouse Occupation: Retired ED ROS GENERAL - Review of Systems Review Of Systems: See Below Constitutional: Reports: Weakness. Denies: Fever, Chills HEENT: Reports: No Symptoms Respiratory: Reports: No Symptoms Cardiovascular: Denies: Chest Pain, Edema Endocrine: Reports: No Symptoms GI/Abdominal: Reports: No Symptoms. Denies: Abdominal Pain, Constipation, Diarrhea : Reports: No Symptoms Musculoskeletal: Reports: No Symptoms Skin: Reports: No Symptoms Neurological: Reports: No Symptoms ED EXAM, GENERAL - Physical Exam Exam: See Below Exam Limited By: No Limitations General Appearance: Alert, WD/WN, No Apparent Distress Ears: Normal External Exam, Normal Canal, Normal TMs Throat/Mouth: Normal Inspection, Normal Oropharynx, No Airway Compromise Head: Atraumatic, Normocephalic Neck: Normal Inspection, Supple, Non-Tender, Full Range of Motion Respiratory/Chest: No Respiratory Distress, Lungs Clear, Normal Breath Sounds, Chest Non-Tender Cardiovascular: Regular Rate, Rhythm, No Edema GI/Abdominal: Soft, Non-Tender, No Organomegaly Back Exam: Normal Inspection, Full Range of Motion Extremities: Normal Inspection, Normal Range of Motion, Non-Tender, No Pedal Edema Neurological: Alert, Oriented Skin Exam: Warm, Dry, Intact Course - Orders/Labs/Meds Orders: Active Orders 24 hr Category Date Time Status EKG Documentation Completion [RC] STAT Care 04/19/18 22:51 Active COMPREHENSIVE METABOLIC PN,CMP [CHEM] Stat Lab 04/19/18 23:00 Received LACTATE DEHYDROGENASE,LDH [CHEM] Stat Lab 04/19/18 23:00 Received TROPONIN I [CHEM] Stat Lab 04/19/18 23:00 Received UA W/MICROSCOPIC [URIN] Stat Lab 04/19/18 22:52 Ordered Labs: Laboratory Tests 04/19/18 Range/Units 23:00 WBC 5.2 (5.0-10.0) 10^3/uL RBC 4.17 L (4.50-6.00) 10^6/uL Hgb 12.8 L (14.0-18.0) g/dL Hct 37.7 L (40.0-54.0) % MCV 90.4 (82.0-94.0) fL MCH 30.7 (27.0-32.0) pg MCHC 34.0 (33.0-38.0) g/dL RDW Coeff of Jaya 16.0 H (11.0-15.0) % Plt Count 182 (150-400) 10^3/uL Neut % (Auto) 74.7 (35-85) % Lymph % (Auto) 16.2 (10-55) % [place] % (Auto) 8.3 (0-16) % Eos % (Auto) 0.6 (0-5) % Baso % (Auto) 0.2 (0-3) % Neut # (Auto) 3.89 (1.80-7.00) 10^3/uL Lymph # (Auto) 0.84 L (1.00-4.80) 10^3/uL [place] # (Auto) 0.43 (0.00-0.80) 10^3/uL Eos # (Auto) 0.03 (0.00-0.45) 10^3/uL Baso # (Auto) 0.01 10^3/uL - Re-Assessments/Exams Free Text/Narrative Re-Assessment/Exam: 04/19/18 23:35 In to discuss lab results with the pt. All labs except sodium is normal. EKG is normal. Sats are 100%. Departure - Departure Time of Disposition: 23:45 Disposition: Home, Self-Care 01 Condition: Good Clinical Impression: Weakness - Discharge Information Instructions: Weakness, [id number] Referrals: Bk Snaders MD [Primary Care Provider] - Additional Instructions: stop the doxasin at this tiime. It may be causing you to drop your BP when you get up. Recheck with Dr. Sanders if not improving - Problem List & Annotations (1) Weakness SNOMED Code(s): 69368131 Code(s): R53.1 - WEAKNESS Status: Acute Priority: High Current Visit: Yes - Problem List Review Problem List Initiated/Reviewed/Updated: Yes - My Orders Last 24 Hours: My Active Orders 04/19/18 22:51 EKG Documentation Completion [RC] STAT 04/19/18 22:52 UA W/MICROSCOPIC [URIN] Stat 04/19/18 23:00 COMPREHENSIVE METABOLIC PN,CMP [CHEM] Stat LACTATE DEHYDROGENASE,LDH [CHEM] Stat TROPONIN I [CHEM] Stat - Assessment/Plan Last 24 Hours: My Active Orders 04/19/18 22:51 EKG Documentation Completion [RC] STAT 04/19/18 22:52 UA W/MICROSCOPIC [URIN] Stat 04/19/18 23:00 COMPREHENSIVE METABOLIC PN,CMP [CHEM] Stat LACTATE DEHYDROGENASE,LDH [CHEM] Stat TROPONIN I [CHEM] Stat
[2018-04-19 23:24] VITALS: BP 155/89
== END 2018-04-19 23:50 | disposition home or self-care (01) ==
LOC: CC.ED 22:35
DX: R53.1 Weakness (principal); I10 Essential (primary) hypertension; E78.00 Pure hypercholesterolemia, unspecified; K21.9 Gastro-esophageal reflux disease without esophagitis; F41.9 Anxiety disorder, unspecified; M19.90 Unspecified osteoarthritis, unspecified site; Z79.899 Other long term (current) drug therapy; Z79.82 Long term (current) use of aspirin; Z88.1 Allergy status to other antibiotic agents; Z88.2 Allergy status to sulfonamides; Z88.8 Allergy status to other drugs, medicaments and biological substances
CPT/HCPCS: 36415; 80053; 81001; 83615; 84484; 85025; 93005; 99283

== ENCOUNTER 2018-04-28 14:20 | Emergency (ER) | payer MEDICARE, BC ==
[2018-04-28] MEDS ORDERED: Oxymetazoline 0.05% Nasal Spray 15 ML Bottle NAS ONE (14:30)
[2018-04-28 14:47] VITALS: BP 145/78
--- NOTE | 2018-04-28 16:36 | EDM.PDOC ---
ED HPI GENERAL MEDICAL PROBLEM - General Chief Complaint: General Stated Complaint: nose bleed Time Seen by Provider: 04/28/18 14:27 Source of Information: Reports: Patient History Limitations: Reports: No Limitations - History of Present Illness INITIAL COMMENTS - FREE TEXT/NARRATIVE: This patient is an 87 year old male that presents to the ER. Patient reports that his nose bled a little bit yesterday. He reports it stopped on its own. He reports then today his left nostril began to bleed again. Patient reports that he came to the ER because it kept bleeding. The patient denies sánchez, dizziness, n , v, d, f, sinus pressure, cp, soa, cough, injury. Onset: Today Onset Date: 04/28/18 Duration: Minutes: (30) Severity: Moderate Improves with: Reports: None Worsens with: Reports: None Associated Symptoms: Reports: No Other Symptoms. Denies: Confusion, Chest Pain , Cough, cough w sputum, Diaphoresis, Fever/Chills, Headaches, Loss of Appetite , Malaise, Nausea/Vomiting, Rash, Seizure, Shortness of Breath, Syncope, Weakness - Related Data Allergies Allergy/AdvReac Type Severity Reaction Status Date / Time cephalexin Allergy Cannot Verified 04/28/18 14:30 Remember escitalopram Allergy Rash Verified 04/28/18 14:30 procainamide HCl Allergy Cannot Verified 04/28/18 14:30 [From Procan SR] Remember Sulfa (Sulfonamide Allergy Nausea and Verified 04/28/18 14:30 Antibiotics) Vomiting Home Meds: Home Meds Amitriptyline [Elavil] 20 mg PO BEDTIME 12/17/13 [History] Aspirin [Halfprin] 81 mg PO DAILY 12/17/13 [History] Nitroglycerin [Nitrostat] 0.4 mg SL ASDIRECTED PRN 12/17/13 [History] Simvastatin [Zocor] 10 mg PO BEDTIME 12/17/13 [History] Timolol Maleate [Timoptic 0.5% Ophth Soln] 1 drop EYEBOTH BID 12/17/13 [History] Bimatoprost [LUMIGAN 0.01% Ophth Soln] 1 drop EYELF BEDTIME 12/18/13 [History] Multivitamin [Multi-Vitamin Daily] 1 tab PO DAILY 11/14/14 [History] Ranitidine [Zantac] 75 mg PO DAILY PRN 11/14/14 [History] Tamsulosin [Flomax] 0.4 mg PO BEDTIME 11/14/14 [History] Acetaminophen [Tylenol Extra Strength] 500 mg PO Q6H PRN 07/30/15 [History] Cholecalciferol (Vitamin D3) [Vitamin D3] 1,000 units PO DAILY 07/30/15 [History ] Pantoprazole [ProTONIX] 40 mg PO DAILY 09/20/16 [History] Betamethasone/Propylene Glyc [Betamethasone Dp Aug 0.05% Oin] 1 applic TOP DAILY PRN 05/22/17 [History] Clotrimazole/Betamethasone Dip [Lotrisone Cream] 1 applic TOP BID PRN 05/22/17 [ History] Hydrocodone/Acetaminophen [Hydrocodon-Acetaminophn 10-325] 1 tab PO Q4H PRN [History] Metoprolol Tartrate [Lopressor] 12.5 mg PO BID 05/29/17 [History] NIFEdipine [Procardia] 10 mg PO DAILY 02/22/18 [History] Sucralfate 1 gm PO TID 02/22/18 [History] ALPRAZolam [Xanax] 0.25 mg PO BEDTIME PRN 03/14/18 [History] Codeine/Promethazine [Phenergan with Codeine] 10 ml PO Q6H PRN #240 ml 03/23/18 [Rx] Doxazosin Mesylate [Cardura] 2 mg PO DAILY 30 Days #30 03/23/18 [Rx] Temazepam [Restoril] 15 mg PO BEDTIME PRN #20 cap 03/23/18 [Rx] Past Medical History HEENT History: Reports: Cataract, Glaucoma Cardiovascular History: Reports: Bypass, CAD, High Cholesterol, Hypertension Gastrointestinal History: Reports: Chronic Constipation, Diverticulosis, GERD, Inflammatory Bowel Disease, Other (See Below) Other Gastrointestinal History: Strangulated hernia Musculoskeletal History: Reports: Arthritis, Back Pain, Chronic, Neck Pain, Chronic, Osteoarthritis Neurological History: Reports: TIA Psychiatric History: Reports: Anxiety Endocrine/Metabolic History: Reports: Vitamin D Deficiency Oncologic (Cancer) History: Reports: Prostate - Past Surgical History Cardiovascular Surgical History: Reports: Coronary Artery Bypass GI Surgical History: Reports: Hernia, Abdominal Musculoskeletal Surgical History: Reports: Knee Replacement Social & Family History - Family History Family Medical History: Noncontributory HEENT: Reports: None Cardiac: Reports: None Respiratory: Reports: None GI: Reports: GERD Musculoskeletal: Reports: Arthritis - Tobacco Use Smoking Status *Q: Never Smoker - Caffeine Use Caffeine Use: Reports: Coffee - Recreational Drug Use Recreational Drug Use: No - Living Situation & Occupation Living situation: Reports: , with Spouse Occupation: Retired ED ROS GENERAL - Review of Systems Review Of Systems: See Below Constitutional: Reports: No Symptoms HEENT: Reports: Nosebleed Respiratory: Reports: No Symptoms Cardiovascular: Reports: No Symptoms Endocrine: Reports: No Symptoms GI/Abdominal: Reports: No Symptoms : Reports: No Symptoms Musculoskeletal: Reports: No Symptoms Skin: Reports: No Symptoms Neurological: Reports: No Symptoms Psychiatric: Reports: No Symptoms Hematologic/Lymphatic: Reports: No Symptoms Immunologic: Reports: No Symptoms ED EXAM, GENERAL - Physical Exam Exam: See Below Exam Limited By: No Limitations General Appearance: Alert, WD/WN, No Apparent Distress Eye Exam: Bilateral Eye: Normal Inspection, PERRL Ears: Normal External Exam, Normal Canal, Hearing Grossly Normal, Normal TMs Ear Exam: Bilateral Ear: Auricle Normal, Canal Normal, TM normal Nose: Normal Inspection, Normal Mucosa, No Blood Throat/Mouth: Normal Inspection, Normal Lips, Normal Teeth, Normal Gums, Normal Oropharynx, Normal Voice, No Airway Compromise Head: Atraumatic, Normocephalic Neck: Normal Inspection, Supple, Non-Tender, Full Range of Motion Respiratory/Chest: No Respiratory Distress, Lungs Clear, Normal Breath Sounds, No Accessory Muscle Use, Chest Non-Tender Cardiovascular: Normal Peripheral Pulses, Regular Rate, Rhythm, No Edema, No Gallop, No JVD, No Murmur, No Rub Back Exam: Normal Inspection Extremities: Normal Inspection Neurological: Alert, Oriented Psychiatric: Normal Affect, Normal Mood Skin Exam: Warm, Dry, Intact, Normal Color, No Rash Lymphatic: No Adenopathy Course - Vital Signs Last Recorded V/S: Last Vital Signs Temp 98.1 F 04/28/18 14:22 Pulse 80 04/28/18 14:22 Resp 20 04/28/18 14:22 BP 145/78 H 04/28/18 14:22 Pulse Ox 98 04/28/18 14:22 - Orders/Labs/Meds Labs: Laboratory Tests 04/28/18 Range/Units 14:30 WBC 6.6 (5.0-10.0) 10^3/uL RBC 4.49 L (4.50-6.00) 10^6/uL Hgb 13.9 L (14.0-18.0) g/dL Hct 41.2 (40.0-54.0) % MCV 91.8 (82.0-94.0) fL MCH 31.0 (27.0-32.0) pg MCHC 33.7 (33.0-38.0) g/dL RDW Coeff of Jaya 16.3 H (11.0-15.0) % Plt Count 208 (150-400) 10^3/uL Neut % (Auto) 72.0 (35-85) % Lymph % (Auto) 19.0 (10-55) % [place] % (Auto) 7.7 (0-16) % Eos % (Auto) 1.1 (0-5) % Baso % (Auto) 0.2 (0-3) % Neut # (Auto) 4.77 (1.80-7.00) 10^3/uL Lymph # (Auto) 1.26 (1.00-4.80) 10^3/uL [place] # (Auto) 0.51 (0.00-0.80) 10^3/uL Eos # (Auto) 0.07 (0.00-0.45) 10^3/uL Baso # (Auto) 0.01 10^3/uL Meds: Medications Discontinued Medications Generic Name Dose Route Start Last Admin Trade Name Perla PRN Reason Stop Dose Admin Oxymetazoline HCl 5 ml 04/28/18 14:30 04/28/18 14:32 Afrin Original 0.05% Nasal [place] ELROY 04/28/18 14:31 5 ml ONETIME ONE Administration Departure - Departure Time of Disposition: 16:33 Disposition: Home, Self-Care 01 Condition: Fair Clinical Impression: Epistaxis - Discharge Information Instructions: Nosebleed, Adult, [id number] Referrals: Bk Sanders MD [Primary Care Provider] - Forms: ED Department Discharge Additional Instructions: Followup with your primary care provider Return to the ER for worsening of condition or any emergent concerns If nose begins to bleed again. Apply direct pressure, keep head forward. Do this for 30-45 minutes, if continues return to ER See ENT Dr Paniagua - Assessment/Plan Plan: PLEASE SEE RN NOTE FOR PFSH.
== END 2018-04-28 16:40 | disposition home or self-care (01) ==
LOC: CC.ED 14:20
DX: R04.0 Epistaxis (principal); E78.00 Pure hypercholesterolemia, unspecified; I10 Essential (primary) hypertension; K21.9 Gastro-esophageal reflux disease without esophagitis; Z88.8 Allergy status to other drugs, medicaments and biological substances; Z88.1 Allergy status to other antibiotic agents; Z88.2 Allergy status to sulfonamides; Z79.82 Long term (current) use of aspirin; Z79.899 Other long term (current) drug therapy
CPT/HCPCS: 36415; 85025; 99283